=== PATIENT | male | born 1930 | race Caucasian/White ===

== ENCOUNTER 2016-11-18 14:15 | Inpatient (IN) | payer OTHER ==
[~2016-11-18] VITALS: Ht 170.2 cm; Wt 66.6 kg
[~2016-11-18 14:15] MED LIST: ALBUAER19 INH; ALPR-411 PO; AMLO2.5T PO; ASPI81TA28 PO; LISI-461 PO; METO25TA3 PO; PRAV40TA PO; PYRI100T4 PO; [UNRECOGNIZED DRUG - CODE] RE
--- NOTE | 2016-11-18 15:12 | EMERGENCY ROOM VISIT NOTE ---
History Report prepared by Ara: Ubaldo Estrella Under the Supervision of: Dr. David Branch D.O. First contact with patient: 14:41 Chief Complaint: ANXIETY Stated Complaint: SOB/ANXIETY History of Present Illness The patient is an 85 year old male who presents to the Emergency Room with complaints of episodes of chest pain that started 5 days ago. He was referred here by his primary care doctor prior to arrival. Per the patient, he started having left-sided chest pain 5 days ago, and his pulse was very high. Each night , he says that he gets cold and shakes all night long. On the 3rd day of his symptoms, his chest pain moved to his right side. Per the patient's daughter, the patient has also been having episodes of diarrhea, and a bit of a runny nose. Last night, the patient took his 's 2L oxygen because he was having a hard time sleeping. He is not normally on oxygen. He woke up this morning, and was sweating. The patient went to see his physician at [facility], who said that the patient's heart was beating too fast. Per the patient's daughter, the patient was having trouble breathing and had a fever in the office. The patient denies any abdominal pain, cough, or new leg pain. His medical problems include hyperlipidemia and hypertension. He takes nerve medication and has patches for early dementia. He had bladder cancer surgery, and has had chemotherapy. The patient was on antibiotics for a UTI recently. Source of History: patient, family Onset: 5 days ago Position: chest Timing: other Associated Symptoms: + SOB, + chills, + diarrhea, + fevers, No abdominal pain, No cough Note: Associated symptoms: Shaking intermittently, runny nose, high pulse. Denies any new leg pain. Review of Systems See HPI for pertinent positives & negatives. A total of 10 systems reviewed and were otherwise negative. Past Medical & Surgical Medical Problems: (1) Asthma (2) Community acquired pneumonia (3) Hernia (4) Hypertension (5) Kidney disease (6) Pacemaker Family History Cancer Hypertension Lung disease Social History Smoking Status: Former Smoker Alcohol Use: none Drug Use: none Marital Status: Housing Status: lives with significant other Current/Historical Medications Scheduled Albuterol (Ventolin Hfa), 2 PUFFS INH QID Amlodipine (Norvasc), 2.5 MG PO QAM Aspirin (Aspirin Ec), 81 MG PO QAM Lisinopril (Lisinopril), 5 MG PO DAILY Metoprolol Succ (Toprol Xl) (Toprol-Xl), 25 MG PO DAILY Omeprazole (Prilosec), 20 MG PO DAILYBB Pravastatin Sodium (Pravachol), 40 MG PO HS Rivastigmine Tartrate (Exelon), 1 PATCH TD DAILY Scheduled PRN Alprazolam (Alprazolam), 0.25 MG PO TID PRN for NERVOUSNESS Allergies Coded Allergies: Sulfa Antibiotics (Verified Allergy, Intermediate, RASH, 11/18/16) BEE STING (Unverified Allergy, Unknown, swollen, 11/18/16) Adhesives (Verified Adverse Reaction, Intermediate, SKIN IRRITATIONS, BRUISES, 11/18/16) Verapamil (Verified Adverse Reaction, Mild, N/V, 11/18/16) Physical Exam Vital Signs Date Time Temp Pulse Resp B/P Pulse Ox O2 Delivery O2 Flow Rate FiO2 11/18/16 15:52 95 Nasal Cannula 2.0 11/18/16 14:34 38.2 75 20 124/65 97 Nasal Cannula 2.0 11/18/16 14:24 78 Physical Exam GENERAL: Patient is awake, alert, somewhat anxious appearing, but overall comfortable. Does not appear to be in pain. EYES: The conjunctivae are clear. The pupils are round and reactive. EARS, NOSE, MOUTH AND THROAT: The nose is without any evidence of any deformity. Mucous membranes are moist tongue is midline NECK: The neck is nontender and supple. RESPIRATORY: Lung sounds diminished in left lung field. Rhonchi and rales noted in left lung field. CARDIOVASCULAR: Regular rate and rhythm noted there no murmurs rubs or gallops normal S1 normal S2 GASTROINTESTINAL: The abdomen is soft. Bowel sounds are present in all quadrants. Abdomen is nontender MUSCULOSKELETAL/EXTREMITIES: There is no evidence of gross deformity full range of motion is noted in the hips and shoulders SKIN: Trace pedal edema bilaterally. NEUROLOGIC: Patient is awake alert and oriented x3. Medical Decision & Procedures ER Provider Diagnostic Interpretation: X-ray results as stated below per interpretation by me and the radiologist. CHEST ONE VIEW PORTABLE CLINICAL HISTORY: Sepsis COMPARISON STUDY: 06/19/2016 FINDINGS: The heart is at the upper limits of normal in size. There is a left subclavian dual-chamber central venous pacemaker present. There are right upper lobe airspace opacities consistent with a pneumonia. Films subsequent to treatment are recommended in follow-up. There is mild chronic basilar interstitial thickening. There is no overt failure. There are no pleural effusions.[ IMPRESSION: Right upper lobe airspace opacities consistent with pneumonia. Films subsequent to treatment are recommended in follow-up. Electronically signed by: Donaldo Ny M.D. 11/18/2016 3:12 PM Dictated Date/Time: 11/18/2016 3:11 PM Laboratory Results 11/18/16 15:00 Red Blood Count 4.31, Mean Corpuscular Volume 91.4, Mean Corpuscular Hemoglobin 31.8, Mean Corpuscular Hemoglobin Concent 34.8, Mean Platelet Volume 9.6, Neutrophils (%) (Auto) 90.2, Lymphocytes (%) (Auto) 3.2, Monocytes (%) (Auto) 6.0, Eosinophils (%) (Auto) 0.1, Basophils (%) (Auto) 0.1, Neutrophils # (Auto) 14.19, Lymphocytes # (Auto) 0.51, Monocytes # (Auto) 0.95, Eosinophils # (Auto) 0.01, Basophils # (Auto) 0.01 11/18/16 15:00 Test 11/18/16 00:00 11/18/16 15:00 11/18/16 15:15 11/18/16 15:16 Influenza Type A (RT-PCR) Neg for Influ A (NEG) Influenza Type A Antigen Neg for Influ A (NEG) Influenza Type B Antigen Neg for Influ B (NEG) Influenza Type B (RT-PCR) Neg for Influ B (NEG) White Blood Count 15.73 K/uL (4.8-10.8) Red Blood Count 4.31 M/uL (4.7-6.1) Hemoglobin 13.7 g/dL (14.0-18.0) Hematocrit 39.4 % (42-52) Mean Corpuscular Volume 91.4 fL (80-100) Mean Corpuscular Hemoglobin 31.8 pg (25-34) Mean Corpuscular Hemoglobin Concent 34.8 g/dl (32-36) Platelet Count 178 K/uL (130-400) Mean Platelet Volume 9.6 fL (7.4-10.4) Neutrophils (%) (Auto) 90.2 % Lymphocytes (%) (Auto) 3.2 % Monocytes (%) (Auto) 6.0 % Eosinophils (%) (Auto) 0.1 % Basophils (%) (Auto) 0.1 % Neutrophils # (Auto) 14.19 K/uL (1.4-6.5) Lymphocytes # (Auto) 0.51 K/uL (1.2-3.4) Monocytes # (Auto) 0.95 K/uL (0.11-0.59) Eosinophils # (Auto) 0.01 K/uL (0-0.5) Basophils # (Auto) 0.01 K/uL (0-0.2) RDW Standard Deviation 47.8 fL (36.4-46.3) RDW Coefficient of Variation 14.2 % (11.5-14.5) Immature Granulocyte % (Auto) 0.4 % Immature Granulocyte # (Auto) 0.06 K/uL (0.00-0.02) Red Blood Cell Morphology Unremarkable Erythrocyte Sedimentation Rate 53 mm/hr (0-14) Prothrombin Time 12.1 SECONDS (9.0-12.0) Prothromb Time International Ratio 1.1 (0.9-1.1) Activated Partial Thromboplast Time 29.2 SECONDS (21.0-31.0) Partial Thromboplastin Ratio 1.1 Anion Gap 8.0 mmol/L (3-11) Est Creatinine Clear Calc Drug Dose 28.6 ml/min Estimated GFR () 41.1 Estimated GFR (Non- 35.5 BUN/Creatinine Ratio 13.8 (10-20) Calcium Level 8.7 mg/dl (8.5-10.1) Phosphorus Level 1.2 mg/dl (2.5-4.9) Magnesium Level 2.1 mg/dl (1.8-2.4) Total Bilirubin 2.1 mg/dl (0.2-1) Aspartate Amino Transf (AST/SGOT) 25 U/L (15-37) Alanine Aminotransferase (ALT/SGPT) 17 U/L (12-78) Alkaline Phosphatase 58 U/L (45-117) Total Creatine Kinase 126 U/L (39-308) Creatine Kinase MB 1.4 ng/ml (0.5-3.6) Creatine Kinase MB Ratio 1.1 (0-3.0) Troponin I 0.043 ng/ml (0-0.045) C-Reactive Protein 16.20 mg/dl (0-0.29) Pro-B-Type Natriuretic Peptide 1663 pg/ml (0-1800) Total Protein 7.2 gm/dl (6.4-8.2) Albumin 2.8 gm/dl (3.4-5.0) Globulin 4.4 gm/dl (2.5-4.0) Albumin/Globulin Ratio 0.6 (0.9-2) Lipase 80 U/L (73-393) Venous Blood pH 7.49 (7.36-7.41) Venous Blood Partial Pressure CO2 35 mmHg (38.0-50.0) Venous Blood Partial Pressure O2 34 mmHg Venous Blood HCO3 26 meq/L Venous Blood Oxygen Saturation 67.0 % Venous Blood Base Excess 2.9 mmol/L Bedside Lactic Acid Venous 1.61 mmol/L (0.90-1.70) Test 11/18/16 16:40 Urine Color DK YELLOW Urine Appearance CLEAR (CLEAR) Urine pH 8.5 (4.5-7.5) Urine Specific [place] 1.021 (1.000-1.030) Urine Protein 1+ (NEG) Urine Glucose (UA) NEG (NEG) Urine Ketones NEG (NEG) Urine Occult Blood NEG (NEG) Urine Nitrite NEG (NEG) Urine Bilirubin NEG (NEG) Urine Urobilinogen POS (NEG) Urine Leukocyte Esterase MODERATE (NEG) Urine WBC (Auto) >30 /hpf (0-5) Urine RBC (Auto) 5-10 /hpf (0-4) Urine Hyaline Casts (Auto) 1-5 /lpf (0-5) Urine Epithelial Cells (Auto) 0-5 /lpf (0-5) Urine Bacteria (Auto) 1+ (NEG) Laboratory results per my review. Medications Administered Medications (Trade) Dose Ordered Sig/Avelino Route Start Time Stop Time Status Last Admin Dose Admin Levofloxacin 750 mg 750 mg NOW STAT IV 11/18/16 15:32 11/18/16 15:33 DC 11/18/16 15:45 750 MG Sodium Chloride (Nss 500ml) 500 ml @ 999 mls/hr Q31M STAT IV 11/18/16 15:50 11/18/16 16:20 DC 11/18/16 15:50 999 MLS/HR Acetaminophen (Tylenol Children'S Susp) 1,000 mg TODAY@1640 PO 11/18/16 16:40 11/18/16 17:00 DC 11/18/16 17:05 1,000 MG ECG Indication: chest pain Rate (beats per minute): 74 Rhythm: normal sinus Findings: no ectopy, other (no acute ST segment abnormalities) Change: no significant change (from April 03 2016) ED Course 1451: The patient was evaluated in room C12B. A complete history and physical examination were performed. 1532: Ordered Levaquin / D5W 750 mg IV. 1535: I reevaluated the patient and he is resting comfortably. 1550: Ordered NSS 500 ml @ 999 mls/hr IV. 1609: Ordered Tylenol Tab 1000 mg PO. 1712: I discussed the patient with Dr. Azar Barajas security site supervisor - she will evaluate the patient for further treatment. 1716: Upon reevaluation, the patient is resting comfortably. I discussed results and treatment plan with him. He verbalizes agreement and understanding. The patient will be evaluated for further management and care. Medical Decision Differential diagnosis: Etiologies such as infections, reactive airway disease, pneumonia, pneumothorax , COPD, CHF, cardiac ischemia, pulmonary embolism, musculoskeletal, gastrointestinal, as well as others were entertained. Nursing notes reviewed. Additional history is obtained from the patient's family members. The patient is an 85-year-old male who presented to the emergency department for an evaluation of difficulty breathing and cough. The patient noted that he had a fever. He was seen at his primary care physician's office and then sent to the emergency department because of fever and difficulty breathing. The patient was found have signs of pneumonia on chest x-ray. He was treated with IV fluids as well as IV antibiotics. He did not appear septic. The patient was reevaluated multiple times. He was feeling much better on subsequent reevaluation. I discussed the patient's laboratory and radiographic studies with him. Because of his age and comorbidities I discussed his case with the on- call [facility] hospitalist group. They've agreed to evaluate the patient in the emergency department for further management and disposition. Consults Time Called: 1700 Consulting Physician: Dr. Azar Barajas security site supervisor Returned Call: 1712 I discussed the patient with Dr. Azar Barajas security site supervisor - she will evaluate the patient for further treatment. Impression Primary Impression: PNA (pneumonia) Additional Impressions: Fever UTI (urinary tract infection) Scribe Attestation The scribe's documentation has been prepared under my direction and personally reviewed by me in its entirety. I confirm that the note above accurately reflects all work, treatment, procedures, and medical decision making performed by me. Departure Information Dispostion Being Evaluated By Hospitalist Referrals Neena Jimenez M.D. (PCP) Patient Instructions My [facility] Problem Qualifiers Primary Impression: PNA (pneumonia) Pneumonia type: due to unspecified organism Laterality: left Lung location : lower lobe of lung Qualified Codes: J18.1 - Lobar pneumonia, unspecified organism Additional Impressions: Fever Fever type: unspecified Qualified Codes: R50.9 - Fever, unspecified UTI (urinary tract infection) Urinary tract infection type: site unspecified Hematuria presence: without hematuria Qualified Codes: N39.0 - Urinary tract infection, site not specified
[2016-11-18 15:31] LABS: HEMATOCRIT 39.4 % (42-52); MEAN CELL VOLUME 91.4 fL (80-100); MEAN CORPUSCULAR HEMOGLOBIN 31.8 pg (25-34); MEAN CORPUSCULAR HGB CONC 34.8 g/dl (32-36); MEAN PLATELET VOLUME 9.6 fL (7.4-10.4); PLATELET COUNT 178 K/uL (130-400); RED BLOOD COUNT 4.31 M/uL (4.7-6.1); WHITE BLOOD COUNT 15.73 K/uL (4.8-10.8)
[2016-11-18] MEDS ORDERED: LEVAQUIN 750MG / 150ML D5W IV STA (15:32)
[2016-11-18 15:37] LABS: VENOUS BLOOD GAS PCO2 35 mmHg (38.0-50.0); VENOUS BLOOD GAS PO2 34 mmHg
[2016-11-18 15:38] LABS: VEN BLOOD GAS BASE EXCESS 2.9 mmol/L
[2016-11-18 15:40] LABS: INR 1.1 (0.9-1.1); PARTIAL THROMBOPLASTIN RATIO 1.1; PROTHROMBIN TIME (PATIENT) 12.1 SECONDS (9.0-12.0)
[2016-11-18 15:50] LABS: BUN/CREATININE RATIO 13.8 (10-20); C-REACTIVE PROTEIN 16.2 mg/dl (0-0.29); CALCIUM 8.7 mg/dl (8.5-10.1); CREATININE 1.7 mg/dl (0.60-1.40); MAGNESIUM 2.1 mg/dl (1.8-2.4); POTASSIUM 4.3 mmol/L (3.5-5.1)
[2016-11-18] MEDS ORDERED: SODIUM CHLORIDE 0.9% 500ML 500 ML IV STA (15:50)
[2016-11-18 16:01] LABS: ALB/GLOB RATIO 0.6 (0.9-2); CKMB/CK RATIO 1.1 (0-3.0); PHOSPHORUS 1.2 mg/dl (2.5-4.9)
[2016-11-18] MEDS ORDERED: PRVHFAIN INH (16:08)
[2016-11-18] MEDS ORDERED: EXLP46 TD (16:08)
[2016-11-18] MEDS ORDERED: PRLSR20 PO (16:08)
[2016-11-18] MEDS ORDERED: LSN5 PO (16:08)
[2016-11-18] MEDS ORDERED: XNX25 PO (16:08)
[2016-11-18] MEDS ORDERED: TRMCR130WC TOP (16:08)
[2016-11-18] MEDS ORDERED: ACETAMINOPHEN 500 MG TAB PO STA (16:09)
[2016-11-18 16:27] LABS: BASO % 0.1 %; BASO ABS # 0.01 K/uL (0-0.2); COMPLETE YES; EOS % 0.1 %; IG% 0.4 %; LYMPH % 3.2 %; LYMPH ABS # 0.51 K/uL (1.2-3.4); NEUT % 90.2 %
[2016-11-18] MEDS ORDERED: ACETAMINOPHEN SUSP 160 MG/5 ML BTL PO SCH (16:40)
[2016-11-18 17:19] LABS: URINE APPEARANCE CLEAR (CLEAR); URINE BILIRUBIN NEG (NEG); URINE COLOR DK YELLOW; URINE EPITHELIAL CELL AUTO 0-5 /lpf (0-5); URINE NITRITE NEG (NEG); URINE PH 8.5 (4.5-7.5); URINE SPECIFIC GRAVITY 1.021 (1.000-1.030); UROBILINOGEN POS (NEG); ZZUR CULT IF INDIC CLEAN CATCH YES
[2016-11-18 17:33] LABS: MANUAL MICROSCOPIC REQUIRED? NO; REVIEW REQ? NO; SULFASALICYLIC ACID POS (NEG)
[2016-11-18 18:13] LABS: INFLUENZA A PCR Neg for Influ A (NEG); INFLUENZA B PCR Neg for Influ B (NEG)
[2016-11-18] MEDS ORDERED: ASPEC81 PO (18:21)
[2016-11-18] MEDS ORDERED: ONDANSETRON INJ 2 MG/ML 2 ML VIAL IV PRN (18:45)
[2016-11-18] MEDS ORDERED: POLYETHYLENE (MIRALAX) 17 GM PACK PO PRN (18:45)
[2016-11-18] MEDS ORDERED: ALPRAZOLAM 0.25 MG TAB PO PRN (19:00)
[2016-11-18] MEDS ORDERED: POTASSIUM PHOS 3 MMOL/1 ML INFUSION IV STA (19:06)
--- NOTE | 2016-11-18 19:28 | History and Physical ---
History & Physical Date & Time of Service: Nov 18, 2016 at 18:43 Chief Complaint: Sob/Anxiety Primary Care Physician: Neena Jimenez M.D. History of Present Illness Source: patient 85 yoM who presents with worsening of shortness of breath, chest pain rigors and increased oxygen need over the past 5 days. The patient lives with his at home who wears oxygen and he states that he borrowed her oxygen two nights ago and felt much better. He denies cough, fevers at home, sick contacts or recent travel history except for recent travel to [place]. He took his to the doctor's office today who was attached to his PCP office, and asked to see his PCP urgently. He was found to have a fever of 102.3 and a pulse of 103. He was ill-appearing and tachypneic and was sent via ambulance to the ER. A CXR revealed pneumonia in the RUL and labwork revealed a WBC count of 15K and possible UTI. Phos was also very low at 1.2. He still febrile but was hemodynamically stable and not requiring oxygen. He was given Levaquin 750mg, APAP and NS 500cc. On further investigation of ROS he reports chest pain chronically which is an achy pain not made better or worse by anything in particular and not associated with SOB, sweating, palpitations, etc "it's just there. He is very anxious and constantly moving and going taking care of his and daughter at home. He reports that he rarely sleeps. In the last 5 days he has had rigors and cold intolerance. He appears very stressed and overwhelmed. He reports chronic whole body pain that is there all the time and states that he doesn't want anything for pain because it will get stuck in his throat. He has a known Zenker's diverticulum. If the pain medication can be made into a liquid, he states that he would be amenable. He has recently had a cystoscopy in Aug by Dr. Stovall post-biopsy for bladder cancer which revealed no active cancer present but there was a healing white patch that will be re-evaluated in 3 months. He underwent TURBT surgery and was give intravesicular mitomycin for which he developed a chemical cystitis. He states that he has dysuria every time he urinates, and has urgency as well, so he can't tell if he has a UTI. Past Medical/Surgical History Medical Problems: (1) Bladder cancer Status: Chronic (2) Community acquired pneumonia Status: Chronic (3) COPD (chronic obstructive pulmonary disease) Status: Chronic (4) Hernia Status: Resolved (5) Hypertension Status: Chronic (6) Kidney disease Status: Chronic (7) Pacemaker Status: Chronic Family History Cancer Hypertension Lung disease Social History Smoking Status: Former Smoker (quit 30 yrs ago) Alcohol Use: none Drug Use: none Marital Status: Housing status: lives with family, lives with significant other Occupational Status: retired Immunizations History of Influenza Vaccine: Yes Influenza Vaccine Date: May 09, 2016 History of Tetanus Vaccine?: Yes (1999) Tetanus Immunization Date: Nov 09, 2001 History of Pneumococcal: Yes (1994) Pneumococcal Date: Apr 04, 2016 History of Hepatitis B Vaccine: No Multi-Drug Resistant Organisms History of MDRO: No Allergies Coded Allergies: Sulfa Antibiotics (Verified Allergy, Intermediate, RASH, 11/18/16) BEE STING (Unverified Allergy, Unknown, swollen, 11/18/16) Adhesives (Verified Adverse Reaction, Intermediate, SKIN IRRITATIONS, BRUISES, 11/18/16) Verapamil (Verified Adverse Reaction, Mild, N/V, 11/18/16) Home Medications Scheduled Albuterol (Ventolin Hfa), 2 PUFFS INH QID Amlodipine (Norvasc), 2.5 MG PO QAM Aspirin (Aspirin Ec), 81 MG PO QAM Lisinopril (Lisinopril), 5 MG PO DAILY Metoprolol Succ (Toprol Xl) (Toprol-Xl), 25 MG PO DAILY Omeprazole (Prilosec), 20 MG PO DAILYBB Pravastatin Sodium (Pravachol), 40 MG PO HS Rivastigmine Tartrate (Exelon), 1 PATCH TD DAILY Scheduled PRN Alprazolam (Alprazolam), 0.25 MG PO TID PRN for NERVOUSNESS Review of Systems Constitutional: + chills, + fever, + sweats Eyes: + problem reported ENT: + nasal symptoms, + trouble swallowing (chronic -known Zenker's diverticulum), No sore throat Respiratory: + shortness of breath, No cough, No wheezing Cardiovascular: + chest pain Abdomen: No nausea, No pain, No vomiting Musculoskeletal: + joint pain (generalized), + muscle pain (generalized) Genitourinary - Male: + dysuria, + urinary urgency Neurologic: + memory loss (on exelon patch) Psychiatric: + anxiety, + insomnia Endocrine: + fatigue, + problem reported (cold intolerance/rigors) Integumentary: No new/changing skin lesions Allergic / Immunologic: No food allergies Physical Exam Vital Signs Date Time Temp Pulse Resp B/P Pulse Ox O2 Delivery O2 Flow Rate FiO2 11/18/16 15:52 95 Nasal Cannula 2.0 11/18/16 14:34 38.2 75 20 124/65 97 Nasal Cannula 2.0 11/18/16 14:24 78 GEN: WNWD, mild conversational dyspnea but able to communicate in full sentences off oxygen, alert and appropriate, appears very anxious HEENT: NC/AT, PERRL, normal sclerae, pharynx non-acute, no cervical, submandibular or supraclavicular LAD CARDIO: reg rate, S1/2 heard without m/g/r LUNGS: CTA bilaterally, no crackles, rales or wheezes, good diaphragmatic excursion ABD: soft, TTP in bilateral lower quadrants, non-distended, +BS EXTREMITY: RP and DP palpable 2+ bilat, no LE swelling or edema, extremities are warm and well-perfused NEURO: CN 2-12 grossly intact, sensation intact throughout, no gross focal deficits MUSC: 5/5 strength throughout, no focal deficits SKIN: warm and dry Diagnostics Laboratory Results Results Past 24 Hours Test 11/18/16 00:00 11/18/16 15:00 11/18/16 15:15 11/18/16 15:16 Range/Units Influenza Type A (RT-PCR) Neg for Influ A NEG Influenza Type A Antigen Neg for Influ A NEG Influenza Type B Antigen Neg for Influ B NEG Influenza Type B (RT-PCR) Neg for Influ B NEG White Blood Count 15.73 4.8-10.8 K/uL Red Blood Count 4.31 4.7-6.1 M/uL Hemoglobin 13.7 14.0-18.0 g/dL Hematocrit 39.4 42-52 % Mean Corpuscular Volume 91.4 80-100 fL Mean Corpuscular Hemoglobin 31.8 25-34 pg Mean Corpuscular Hemoglobin Concent 34.8 32-36 g/dl Platelet Count 178 130-400 K/uL Mean Platelet Volume 9.6 7.4-10.4 fL Neutrophils (%) (Auto) 90.2 % Lymphocytes (%) (Auto) 3.2 % Monocytes (%) (Auto) 6.0 % Eosinophils (%) (Auto) 0.1 % Basophils (%) (Auto) 0.1 % Neutrophils # (Auto) 14.19 1.4-6.5 K/uL Lymphocytes # (Auto) 0.51 1.2-3.4 K/uL Monocytes # (Auto) 0.95 0.11-0.59 K/uL Eosinophils # (Auto) 0.01 0-0.5 K/uL Basophils # (Auto) 0.01 0-0.2 K/uL RDW Standard Deviation 47.8 36.4-46.3 fL RDW Coefficient of Variation 14.2 11.5-14.5 % Immature Granulocyte % (Auto) 0.4 % Immature Granulocyte # (Auto) 0.06 0.00-0.02 K/uL Red Blood Cell Morphology Unremarkable Erythrocyte Sedimentation Rate 53 0-14 mm/hr Prothrombin Time 12.1 9.0-12.0 SECONDS Prothromb Time International Ratio 1.1 0.9-1.1 Activated Partial Thromboplast Time 29.2 21.0-31.0 SECONDS Partial Thromboplastin Ratio 1.1 Sodium Level 137 136-145 mmol/L Potassium Level 4.3 3.5-5.1 mmol/L Chloride Level 102 98-107 mmol/L Carbon Dioxide Level 27 21-32 mmol/L Anion Gap 8.0 3-11 mmol/L Blood Urea Nitrogen 24 7-18 mg/dl Creatinine 1.70 0.60-1.40 mg/dl Est Creatinine Clear Calc Drug Dose 28.6 ml/min Estimated GFR () 41.1 Estimated GFR (Non- 35.5 BUN/Creatinine Ratio 13.8 10-20 Random Glucose 117 70-99 mg/dl Calcium Level 8.7 8.5-10.1 mg/dl Phosphorus Level 1.2 2.5-4.9 mg/dl Magnesium Level 2.1 1.8-2.4 mg/dl Total Bilirubin 2.1 0.2-1 mg/dl Aspartate Amino Transf (AST/SGOT) 25 15-37 U/L Alanine Aminotransferase (ALT/SGPT) 17 12-78 U/L Alkaline Phosphatase 58 45-117 U/L Total Creatine Kinase 126 39-308 U/L Creatine Kinase MB 1.4 0.5-3.6 ng/ml Creatine Kinase MB Ratio 1.1 0-3.0 Troponin I 0.043 0-0.045 ng/ml C-Reactive Protein 16.20 0-0.29 mg/dl Pro-B-Type Natriuretic Peptide 1663 0-1800 pg/ml Total Protein 7.2 6.4-8.2 gm/dl Albumin 2.8 3.4-5.0 gm/dl Globulin 4.4 2.5-4.0 gm/dl Albumin/Globulin Ratio 0.6 0.9-2 Lipase 80 73-393 U/L Venous Blood pH 7.49 7.36-7.41 Venous Blood Partial Pressure CO2 35 38.0-50.0 mmHg Venous Blood Partial Pressure O2 34 mmHg Venous Blood HCO3 26 meq/L Venous Blood Oxygen Saturation 67.0 % Venous Blood Base Excess 2.9 mmol/L Bedside Lactic Acid Venous 1.61 0.90-1.70 mmol/L Test 11/18/16 16:40 Range/Units Urine Color DK YELLOW Urine Appearance CLEAR CLEAR Urine pH 8.5 4.5-7.5 Urine Specific [place] 1.021 1.000-1.030 Urine Protein 1+ NEG Urine Glucose (UA) NEG NEG Urine Ketones NEG NEG Urine Occult Blood NEG NEG Urine Nitrite NEG NEG Urine Bilirubin NEG NEG Urine Urobilinogen POS NEG Urine Leukocyte Esterase MODERATE NEG Urine WBC (Auto) >30 0-5 /hpf Urine RBC (Auto) 5-10 0-4 /hpf Urine Hyaline Casts (Auto) 1-5 0-5 /lpf Urine Epithelial Cells (Auto) 0-5 0-5 /lpf Urine Bacteria (Auto) 1+ NEG Microbiology Results 11/18/16 Blood Culture, Received Pending 11/18/16 Blood Culture, Received Pending 11/18/16 Urine Culture, Received Pending Diagnostic Radiology CXR port: IMPRESSION: Right upper lobe airspace opacities consistent with pneumonia. Films subsequent to treatment are recommended in follow-up. EKG SR 74, no ST changes, Q waves or other evidence of ischemia Impression Assessment and Plan 85 yo M with SOB and chest pain 2/2 CAP 1. CAP-patient does not appear septic at this time. He has normal vitals and was febrile on admission. He had a normal lactate level and is not tachypneic on room air. He was given Levaquin in the ER along with 500cc IVF and some Tylenol. All symptoms are consistent with pneumonia, and patient is telling me that most of his symptoms are long-term like the chest pain and pain all over. Place on telemetry overnight. I do not believe he has ACS with normal enzymes after 5 days of chest pain and a normal EKG. Oxygen to use as needed in setting of acute illness. will cont Levaquin at renal dosing for the next 5-7 days. Duonebs ordered for comfort. He has a h/o COPD but is not actively wheezing and I do not believe this is a COPD exacerbation. Blood and Urine cultures are pending. Flu Ag negative with PCR pending. Sputum culture ordered. 2. Chronic pain -including chest pain, ACS not present, feel this is 2/2 pneumonia as above. Cont supportive care with Tylenol/Tramadol PRN 3. Hypophophatemia-replace IV and recheck in am 4. Leukocytosis-likely 2/2 CAP however UTI symptoms are chronically present, there has been urethral manipulation with a cysto in Aug, UA appears dirty and there is some suprapbic tenderness. Levaquin to cover UTI while UCx is pending. 5. COPD-stable, but will give Duonebs for PNA. Do not believe this is an exacerbation with no wheezing or cough or sputum changes 6. HTN-controlled, cont home meds 7. CKD III-at baseline, renally dose meds, avoid nephrotoxic substances 8. Tachybrady syndrom s/p PM 9. Anxiety-significant, takes Xanax at home, cont this as inpatient 10. 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 Rule out UTI as above the defer to Urology as outpatient DVT prophy: heparin Full code Dispo-likely to home in 1-2 days, PT/OT ordered DO Karl You Hospitalist Level of Care Telemetry Resuscitation Status FULL RESUSCITATION VTE Prophylaxis VTE Risk Assessment Done? Y/N: Yes Risk Level: Moderate Given or contraindicated: Unfractionated heparin SQ, SCD's Social Service Consult >80 yr.& Lives Alone, Cancer Patient Under [place]
[2016-11-18] MEDS ORDERED: POTASSIUM PHOSPHATE INJ 30 MMOL in SODIUM CHLORIDE 0.9% 500ML 500 ML IV STA (19:52)
[2016-11-18] MEDS ORDERED: LEVOFLOXACIN CONSULT ACTIVE PRN (20:00)
[2016-11-18] MEDS: PRAVASTATIN SOD 40 MG TAB PO SCH (21:00)
[2016-11-18 22:27] VITALS: BP 117/66; PULSE 78; TEMP 36.7; O2SAT 94; Ht 170.2 cm; Wt 66.6 kg
[2016-11-18 23:52] VITALS: BP 145/74; PULSE 83; TEMP 36.5; O2SAT 97
[2016-11-19] VITALS (13 sets, daily range): BP systolic 110–150; BP diastolic 53–84; PULSE 72–102; TEMP 36.3–37.6; O2SAT 88–98
[2016-11-19] MEDS ORDERED: ACETAMINOPHEN 325 MG TAB ONE (04:13)
[2016-11-19] MEDS ORDERED: NURSING VERBAL MED ORDER ONE ×2 (04:15→09:15)
[2016-11-19] MEDS ORDERED: ACETAMINOPHEN 325 MG TAB PO STA (04:19)
[2016-11-19] MEDS: HEPARIN SOD 5000 UNIT/0.5 ML CARP SQ SCH ×3 (06:39→21:45)
[2016-11-19] MEDS: LISINOPRIL 5 MG TAB PO SCH (08:09)
[2016-11-19] MEDS: AMLODIPINE BESYLATE 5 MG TAB PO SCH (08:10)
[2016-11-19] MEDS: ALBUT/IPRATROP 3MG/0.5MG NEB 3 ML VIAL INH SCH ×4 (08:23→20:20)
[2016-11-19] MEDS ORDERED: METOPROLOL SUCC 25MG EXT REL TAB PO SCH (09:00)
[2016-11-19] MEDS ORDERED: ASPIRIN 81 MG ECTAB PO SCH (09:00)
[2016-11-19] MEDS: METOPROLOL TARTRATE 25 MG TAB PO SCH ×2 (09:46→20:38)
[2016-11-19] MEDS: ASPIRIN 81 MG CHEW PO SCH (09:46)
[2016-11-19] MEDS ORDERED: TRAMADOL HCL 50 MG TAB PO PRN (10:00)
[2016-11-19 10:12] LABS: BASO % 0.1 %; BASO ABS # 0.01 K/uL (0-0.2); COMPLETE YES; EOS % 0.1 %; HEMATOCRIT 36.8 % (42-52); IG% 0.2 %; LYMPH % 2.9 %; LYMPH ABS # 0.37 K/uL (1.2-3.4); MEAN CELL VOLUME 90.6 fL (80-100); MEAN CORPUSCULAR HEMOGLOBIN 31.5 pg (25-34); MEAN CORPUSCULAR HGB CONC 34.8 g/dl (32-36); MEAN PLATELET VOLUME 9.2 fL (7.4-10.4); MONO % 7.2 %; NEUT % 89.5 %; PLATELET COUNT 169 K/uL (130-400); RED BLOOD COUNT 4.06 M/uL (4.7-6.1); WHITE BLOOD COUNT 12.62 K/uL (4.8-10.8)
[2016-11-19] MEDS: PANTOprazole INJ 40 MG in SYRINGE 0 ML IV SCH (10:37)
[2016-11-19] MEDS: ACETAMINOPHEN SOLN 650MG/20.3 ML UDC PO PRN (10:38)
[2016-11-19 10:55] LABS: BUN/CREATININE RATIO 15.2 (10-20); CALCIUM 8.1 mg/dl (8.5-10.1); CREATININE 1.4 mg/dl (0.60-1.40); MAGNESIUM 2.1 mg/dl (1.8-2.4); POTASSIUM 4.1 mmol/L (3.5-5.1)
[2016-11-19 10:57] LABS: PHOSPHORUS 1.8 mg/dl (2.5-4.9)
[2016-11-19] MEDS ORDERED: ALPRAZOLAM 0.25 MG TAB PO ONE (16:35)
--- NOTE | 2016-11-19 18:00 | Progress Note ---
Medicine Progress Note Date & Time of Visit: Nov 19, 2016 at 16:13. Subjective 85 yo M with SOB and chest pain 2/2 CAP -breathing somewhat improved -no fevers, chills, cough overnight -had pain overnight all over body which was improved with Tylenol -tolerating PO -ambulating with assistance Objective Last 8 Hrs Date Time Temp Pulse Resp B/P Pulse Ox O2 Delivery O2 Flow Rate FiO2 11/19/16 15:30 72 16 88 Room Air 2.0 11/19/16 15:07 36.3 76 18 110/69 95 Room Air 11/19/16 12:48 97 Nasal Cannula 1.0 11/19/16 12:00 Nasal Cannula 1.0 11/19/16 11:40 36.6 74 20 110/64 93 11/19/16 11:36 78 16 98 Nasal Cannula 2.0 11/19/16 09:43 95 132/84 Physical Exam: GEN: WNWD, appears anxious, alert and appropriate HEENT: NC/AT, normal sclerae CARDIO: reg rate, S1/2 heard without m/g/r LUNGS: CTA bilaterally, no crackles, rales or wheezes, good diaphragmatic excursion, diminished breath sounds in upper lung warren. ABD: soft, non-tender, non-distended, no rebound or guarding EXTREMITY: no LE swelling or edema, extremities are warm and well-perfused NEURO: no gross focal deficits MUSC: moving all extremities equally SKIN: warm and dry Laboratory Results: 11/19/16 10:03 Red Blood Count 4.06, Mean Corpuscular Volume 90.6, Mean Corpuscular Hemoglobin 31.5, Mean Corpuscular Hemoglobin Concent 34.8, Mean Platelet Volume 9.2, Neutrophils (%) (Auto) 89.5, Lymphocytes (%) (Auto) 2.9, Monocytes (%) (Auto) 7.2, Eosinophils (%) (Auto) 0.1, Basophils (%) (Auto) 0.1, Neutrophils # (Auto) 11.29, Lymphocytes # (Auto) 0.37, Monocytes # (Auto) 0.91, Eosinophils # (Auto) 0.01, Basophils # (Auto) 0.01 11/19/16 10:03 Test 11/18/16 00:00 11/18/16 15:00 11/18/16 15:15 11/18/16 15:16 Influenza Type A (RT-PCR) Neg for Influ A (NEG) Influenza Type A Antigen Neg for Influ A (NEG) Influenza Type B Antigen Neg for Influ B (NEG) Influenza Type B (RT-PCR) Neg for Influ B (NEG) Red Blood Cell Morphology Unremarkable Erythrocyte Sedimentation Rate 53 mm/hr (0-14) Prothrombin Time 12.1 SECONDS (9.0-12.0) Prothromb Time International Ratio 1.1 (0.9-1.1) Activated Partial Thromboplast Time 29.2 SECONDS (21.0-31.0) Partial Thromboplastin Ratio 1.1 Total Bilirubin 2.1 mg/dl (0.2-1) Aspartate Amino Transf (AST/SGOT) 25 U/L (15-37) Alanine Aminotransferase (ALT/SGPT) 17 U/L (12-78) Alkaline Phosphatase 58 U/L (45-117) Total Creatine Kinase 126 U/L (39-308) Creatine Kinase MB 1.4 ng/ml (0.5-3.6) Creatine Kinase MB Ratio 1.1 (0-3.0) Troponin I 0.043 ng/ml (0-0.045) C-Reactive Protein 16.20 mg/dl (0-0.29) Pro-B-Type Natriuretic Peptide 1663 pg/ml (0-1800) Total Protein 7.2 gm/dl (6.4-8.2) Albumin 2.8 gm/dl (3.4-5.0) Globulin 4.4 gm/dl (2.5-4.0) Albumin/Globulin Ratio 0.6 (0.9-2) Lipase 80 U/L (73-393) Venous Blood pH 7.49 (7.36-7.41) Venous Blood Partial Pressure CO2 35 mmHg (38.0-50.0) Venous Blood Partial Pressure O2 34 mmHg Venous Blood HCO3 26 meq/L Venous Blood Oxygen Saturation 67.0 % Venous Blood Base Excess 2.9 mmol/L Bedside Lactic Acid Venous 1.61 mmol/L (0.90-1.70) Test 11/18/16 16:40 11/19/16 10:03 Urine Color DK YELLOW Urine Appearance CLEAR (CLEAR) Urine pH 8.5 (4.5-7.5) Urine Specific [place] 1.021 (1.000-1.030) Urine Protein 1+ (NEG) Urine Glucose (UA) NEG (NEG) Urine Ketones NEG (NEG) Urine Occult Blood NEG (NEG) Urine Nitrite NEG (NEG) Urine Bilirubin NEG (NEG) Urine Urobilinogen POS (NEG) Urine Leukocyte Esterase MODERATE (NEG) Urine WBC (Auto) >30 /hpf (0-5) Urine RBC (Auto) 5-10 /hpf (0-4) Urine Hyaline Casts (Auto) 1-5 /lpf (0-5) Urine Epithelial Cells (Auto) 0-5 /lpf (0-5) Urine Bacteria (Auto) 1+ (NEG) White Blood Count 12.62 K/uL (4.8-10.8) Red Blood Count 4.06 M/uL (4.7-6.1) Hemoglobin 12.8 g/dL (14.0-18.0) Hematocrit 36.8 % (42-52) Mean Corpuscular Volume 90.6 fL (80-100) Mean Corpuscular Hemoglobin 31.5 pg (25-34) Mean Corpuscular Hemoglobin Concent 34.8 g/dl (32-36) Platelet Count 169 K/uL (130-400) Mean Platelet Volume 9.2 fL (7.4-10.4) Neutrophils (%) (Auto) 89.5 % Lymphocytes (%) (Auto) 2.9 % Monocytes (%) (Auto) 7.2 % Eosinophils (%) (Auto) 0.1 % Basophils (%) (Auto) 0.1 % Neutrophils # (Auto) 11.29 K/uL (1.4-6.5) Lymphocytes # (Auto) 0.37 K/uL (1.2-3.4) Monocytes # (Auto) 0.91 K/uL (0.11-0.59) Eosinophils # (Auto) 0.01 K/uL (0-0.5) Basophils # (Auto) 0.01 K/uL (0-0.2) RDW Standard Deviation 46.6 fL (36.4-46.3) RDW Coefficient of Variation 14.2 % (11.5-14.5) Immature Granulocyte % (Auto) 0.2 % Immature Granulocyte # (Auto) 0.03 K/uL (0.00-0.02) Anion Gap 6.0 mmol/L (3-11) Est Creatinine Clear Calc Drug Dose 34.8 ml/min Estimated GFR () 52.0 Estimated GFR (Non- 44.9 BUN/Creatinine Ratio 15.2 (10-20) Calcium Level 8.1 mg/dl (8.5-10.1) Phosphorus Level 1.8 mg/dl (2.5-4.9) Magnesium Level 2.1 mg/dl (1.8-2.4) Date/Time Source Procedure Growth Status 11/18/16 15:10 Blood Blood Culture Pending Received 11/18/16 16:40 Urine , Clean Catch Urine Culture - Preliminary Streptococcus Species Resulted Last 24 Hours Test 11/18/16 16:40 11/19/16 10:03 Urine Color DK YELLOW Urine Appearance CLEAR Urine pH 8.5 Urine Specific [place] 1.021 Urine Protein 1+ Urine Glucose (UA) NEG Urine Ketones NEG Urine Occult Blood NEG Urine Nitrite NEG Urine Bilirubin NEG Urine Urobilinogen POS Urine Leukocyte Esterase MODERATE Urine WBC (Auto) >30 /hpf Urine RBC (Auto) 5-10 /hpf Urine Hyaline Casts (Auto) 1-5 /lpf Urine Epithelial Cells (Auto) 0-5 /lpf Urine Bacteria (Auto) 1+ White Blood Count 12.62 K/uL Red Blood Count 4.06 M/uL Hemoglobin 12.8 g/dL Hematocrit 36.8 % Mean Corpuscular Volume 90.6 fL Mean Corpuscular Hemoglobin 31.5 pg Mean Corpuscular Hemoglobin Concent 34.8 g/dl Platelet Count 169 K/uL Mean Platelet Volume 9.2 fL Neutrophils (%) (Auto) 89.5 % Lymphocytes (%) (Auto) 2.9 % Monocytes (%) (Auto) 7.2 % Eosinophils (%) (Auto) 0.1 % Basophils (%) (Auto) 0.1 % Neutrophils # (Auto) 11.29 K/uL Lymphocytes # (Auto) 0.37 K/uL Monocytes # (Auto) 0.91 K/uL Eosinophils # (Auto) 0.01 K/uL Basophils # (Auto) 0.01 K/uL RDW Standard Deviation 46.6 fL RDW Coefficient of Variation 14.2 % Immature Granulocyte % (Auto) 0.2 % Immature Granulocyte # (Auto) 0.03 K/uL Sodium Level 137 mmol/L Potassium Level 4.1 mmol/L Chloride Level 103 mmol/L Carbon Dioxide Level 28 mmol/L Anion Gap 6.0 mmol/L Blood Urea Nitrogen 21 mg/dl Creatinine 1.40 mg/dl Est Creatinine Clear Calc Drug Dose 34.8 ml/min Estimated GFR () 52.0 Estimated GFR (Non- 44.9 BUN/Creatinine Ratio 15.2 Random Glucose 195 mg/dl Calcium Level 8.1 mg/dl Phosphorus Level 1.8 mg/dl Magnesium Level 2.1 mg/dl Date/Time Source Procedure Growth Status 11/18/16 16:40 Urine , Clean Catch Urine Culture - Preliminary Streptococcus Species Resulted Assessment & Plan 85 yo M with SOB and chest pain 2/2 CAP 1. CAP-improved somewhat overnight, afebrile, no coughing, no rigors or chills reported but still requiring oxygen. Cont Levaquin at renal dosing for the next 5-7 days. Duonebs ordered for comfort. He has a h/o COPD but is not actively wheezing and I do not believe this is a COPD exacerbation. Blood and Urine cultures are pending. Flu PCR negative Sputum culture ordered. 2. FGP-[id number] pending. Still has many urination issues. Will plan to clear infection and have him follow with Urology as an outpatient if symptoms do not improve. 3. Chronic pain -including chest pain, ACS not present, feel this is 2/2 pneumonia as above. Cont supportive care with Tylenol/Tramadol PRN as this is working 4. Hypophosphatemia-repleted 5. Leukocytosis-improved 6. COPD-stable, but will give Duonebs for PNA. Do not believe this is an exacerbation with no wheezing or cough or sputum changes 7. HTN-controlled, cont home meds 8. CKD III-at baseline, renally dose meds, avoid nephrotoxic substances 9. Tachybrady syndrome s/p PM 10. Anxiety-significant, takes Xanax at home, cont this as inpatient 11. 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 Rule out UTI as above the defer to Urology as outpatient DVT prophy: heparin Full code Dispo-likely to home in 1-2 days, PT/OT ordered. Discussed treatment plan with his daughter, who is at bedside. Emily Askew DO [facility] Hospitalist Current Inpatient Medications: Current Inpatient Medications Medications (Trade) Dose Ordered Sig/Avelino Route Start Time Stop Time Status Last Admin Dose Admin Heparin Sodium (Porcine) (Heparin Sq 5000 Unit/0.5ml) 5,000 unit Q8H SQ 11/18/16 22:00 12/18/16 21:59 11/19/16 14:31 5,000 UNIT Polyethylene (Miralax Powder Packet) 17 gm DAILY PRN PO 11/18/16 18:45 12/18/16 18:44 Ondansetron HCl (Zofran Inj) 4 mg Q6H PRN IV 11/18/16 18:45 12/18/16 18:44 Alprazolam (Xanax Tab) 0.25 mg TID PRN PO 11/18/16 19:00 12/18/16 18:59 11/19/16 01:31 0.25 MG Amlodipine Besylate (Norvasc Tab) 2.5 mg QAM PO 11/19/16 09:00 12/19/16 08:59 11/19/16 08:10 2.5 MG Lisinopril (Zestril Tab) 5 mg DAILY PO 11/19/16 09:00 12/19/16 08:59 11/19/16 08:09 5 MG Pravastatin Sodium (Pravachol Tab) 40 mg HS PO 11/18/16 21:00 12/18/16 20:59 Miscellaneous Information (Order Awaiting Action) 1 ea QS N/A 11/19/16 00:00 12/19/16 00:00 Albuterol/ Ipratropium 3 ml 3 ml QIDR INH 11/18/16 20:00 12/18/16 19:59 11/19/16 15:30 3 ML Pantoprazole Sodium 40 mg/ Syringe 10 ml @ 5 mls/min DAILY@11 IV 11/19/16 11:00 12/19/16 10:59 11/19/16 10:37 5 MLS/MIN Levofloxacin/Prmx (Levaquin / D5W/ Premixed D5W) 150 ml @ 100 mls/hr Q48H IV 11/20/16 11:00 11/25/16 10:59 Levofloxacin (Consult) 1 ea UD PRN N/A 11/18/16 20:00 12/18/16 19:59 Aspirin (Aspirin Chew) 81 mg QAM PO 11/19/16 09:00 12/19/16 08:59 11/19/16 09:46 81 MG Metoprolol Tartrate (Lopressor Tab) 12.5 mg BID PO 11/19/16 09:00 12/19/16 08:59 11/19/16 09:46 12.5 MG Acetaminophen (Tylenol Soln) 650 mg Q4H PRN PO 11/19/16 10:00 12/19/16 09:59 11/19/16 10:38 650 MG Tramadol HCl (Ultram Tab) 50 mg Q6H PRN PO 11/19/16 10:00 12/19/16 09:59
[2016-11-19] MEDS: PRAVASTATIN SOD 40 MG TAB PO SCH (20:37)
[2016-11-19] MEDS ORDERED: ALPRAZOLAM 0.5 MG TAB PO SCH (21:00)
[2016-11-20] VITALS (12 sets, daily range): BP systolic 102–138; BP diastolic 54–78; PULSE 64–87; TEMP 36.4–37.6; O2SAT 91–96
[2016-11-20] MEDS: HEPARIN SOD 5000 UNIT/0.5 ML CARP SQ SCH ×3 (05:10→21:20)
[2016-11-20] MEDS: ACETAMINOPHEN SOLN 650MG/20.3 ML UDC PO PRN ×2 (05:55→22:10)
[2016-11-20 05:58] LABS: HEMATOCRIT 34.8 % (42-52); MEAN CELL VOLUME 88.8 fL (80-100); MEAN CORPUSCULAR HEMOGLOBIN 30.6 pg (25-34); MEAN CORPUSCULAR HGB CONC 34.5 g/dl (32-36); MEAN PLATELET VOLUME 8.9 fL (7.4-10.4); PLATELET COUNT 178 K/uL (130-400); RED BLOOD COUNT 3.92 M/uL (4.7-6.1); WHITE BLOOD COUNT 10.11 K/uL (4.8-10.8)
[2016-11-20 06:37] LABS: BUN/CREATININE RATIO 13.6 (10-20); CALCIUM 8.5 mg/dl (8.5-10.1); CREATININE 1.4 mg/dl (0.60-1.40); POTASSIUM 3.8 mmol/L (3.5-5.1)
[2016-11-20] MEDS: ALBUT/IPRATROP 3MG/0.5MG NEB 3 ML VIAL INH SCH ×2 (07:30→12:00)
[2016-11-20] MEDS: LISINOPRIL 5 MG TAB PO SCH (08:39)
[2016-11-20] MEDS: AMLODIPINE BESYLATE 5 MG TAB PO SCH (08:40)
[2016-11-20] MEDS: METOPROLOL TARTRATE 25 MG TAB PO SCH ×2 (08:40→21:16)
[2016-11-20] MEDS: ASPIRIN 81 MG CHEW PO SCH (08:41)
[2016-11-20] MEDS: ALPRAZOLAM 0.25 MG TAB PO SCH (08:44)
[2016-11-20] MEDS ORDERED: LEVOFLOXACIN / D5W 750 MG in PREMIXED IN D5W 150 ML IV SCH (11:00)
[2016-11-20] MEDS ORDERED: ALBUT/IPRATROP 3MG/0.5MG NEB 3 ML VIAL INH PRN (12:15)
[2016-11-20] MEDS: PANTOprazole INJ 40 MG in SYRINGE 0 ML IV SCH (12:15)
[2016-11-20] MEDS: IPRATROPIUM BROMIDE/ALBUTEROL respimat INH INH SCH ×3 (12:16→21:15)
--- NOTE | 2016-11-20 16:20 | Pharmacy Progress Note ---
Automatic IV to PO Conversion Date of Service: Nov 20, 2016. [facility] has identified patient as an appropriate candidate for automatic intravenous to oral conversion. Eligible medication: Levaquin IV every 48 hours. Day # 3 of IV therapy. Subjective The patient is a 85 year old male admitted on Nov 18, 2016 at 19:09 for Community Acquired Pneumonia. Objective Vital Signs: Vital Signs Past 12 Hours Date Time Temp Pulse Resp B/P Pulse Ox O2 Delivery O2 Flow Rate FiO2 11/20/16 15:40 36.8 73 22 115/66 94 Room Air 11/20/16 12:09 70 12 95 Nasal Cannula 2.0 11/20/16 12:00 95 Nasal Cannula 2.0 11/20/16 11:33 73 95 11/20/16 11:03 36.4 64 20 102/54 96 11/20/16 08:00 94 Nasal Cannula 2.0 11/20/16 07:56 36.6 84 20 134/67 94 Nasal Cannula 2.0 11/20/16 07:30 71 16 96 Nasal Cannula 2.0 11/20/16 05:08 37.3 11/20/16 04:38 37.6 75 20 122/65 96 Nasal Cannula 2.0 White Blood Count: Test 11/20/16 05:44 White Blood Count 10.11 K/uL (4.8-10.8) Height (Feet): 5 Height (Inches): 7.00 Weight (Kilograms): 66.600 Type of Diet: AHA Phase I Assessment & Plan The Infectious Disease Society and the [place] [employer] recommend conversion to oral therapy once a patient is determined to be clinically stable and are able to tolerate oral medications. Patient identified as appropriate candidate for IV to PO conversion of Levaquin based on the following criteria: * Afebrile for greater than or equal to 12 hours * Receiving oral/enteral medications and/or tolerating oral/enteral diet for greater than 24 hours * Improvement in clinical condition evidenced by .. WBC count of [] 10^3/uL and trending downward, resolution of signs/symptoms of illness * Hemodynamically stable Automatic conversion to: Levaquin 750 mg PO every 48 hours
[2016-11-20] MEDS ORDERED: ALPRAZOLAM 0.5 MG TAB PO SCH (21:00)
[2016-11-20] MEDS: PRAVASTATIN SOD 40 MG TAB PO SCH (21:16)
--- NOTE | 2016-11-20 23:10 | Progress Note ---
Medicine Progress Note Date & Time of Visit: Nov 20, 2016 at 13:33. Subjective Pt doing well today after a small bout of delirium this morning. -tolerating PO Objective Last 8 Hrs Date Time Temp Pulse Resp B/P Pulse Ox O2 Delivery O2 Flow Rate FiO2 11/20/16 12:09 70 12 95 Nasal Cannula 2.0 11/20/16 12:00 95 Nasal Cannula 2.0 11/20/16 11:03 36.4 64 20 102/54 96 11/20/16 08:00 94 Nasal Cannula 2.0 11/20/16 07:56 36.6 84 20 134/67 94 Nasal Cannula 2.0 11/20/16 07:30 71 16 96 Nasal Cannula 2.0 Physical Exam: GEN: WNWD, appears anxious, alert and appropriate HEENT: NC/AT, normal sclerae CARDIO: reg rate, S1/2 heard without m/g/r LUNGS: CTA bilaterally, no crackles, rales or wheezes, good diaphragmatic excursion, diminished breath sounds in upper lung warren. ABD: soft, non-tender, non-distended, no rebound or guarding EXTREMITY: no LE swelling or edema, extremities are warm and well-perfused NEURO: no gross focal deficits MUSC: moving all extremities equally SKIN: warm and dry Laboratory Results: Last 24 Hours Test 11/20/16 05:44 White Blood Count 10.11 K/uL Red Blood Count 3.92 M/uL Hemoglobin 12.0 g/dL Hematocrit 34.8 % Mean Corpuscular Volume 88.8 fL Mean Corpuscular Hemoglobin 30.6 pg Mean Corpuscular Hemoglobin Concent 34.5 g/dl RDW Standard Deviation 46.2 fL RDW Coefficient of Variation 14.1 % Platelet Count 178 K/uL Mean Platelet Volume 8.9 fL Sodium Level 136 mmol/L Potassium Level 3.8 mmol/L Chloride Level 102 mmol/L Carbon Dioxide Level 27 mmol/L Anion Gap 7.0 mmol/L Blood Urea Nitrogen 19 mg/dl Creatinine 1.40 mg/dl Est Creatinine Clear Calc Drug Dose 34.8 ml/min Estimated GFR () 52.0 Estimated GFR (Non- 44.9 BUN/Creatinine Ratio 13.6 Random Glucose 92 mg/dl Calcium Level 8.5 mg/dl Assessment & Plan 85 yo M with SOB and chest pain 2/2 CAP 1. CAP-improved somewhat overnight, afebrile, no coughing, no rigors or chills reported but still requiring oxygen. Cont Levaquin at renal dosing for the next 5-7 days. Duonebs ordered for comfort. He has a h/o COPD but is not actively wheezing and I do not believe this is a COPD exacerbation. Blood Cx are negative. Flu PCR negative Sputum culture ordered. 2. Enterococcus faecalis UTI-sensitive to FQ. Pt still has many urination issues. Will plan to clear infection and have him follow with Urology as an outpatient if symptoms do not improve. 3. Chronic pain -including chest pain, ACS not present, feel this is 2/2 pneumonia as above. Cont supportive care with Tylenol/Tramadol PRN as this is working 4. Hypophosphatemia-repleted 5. Leukocytosis-improved 6. COPD-stable, but will give Duonebs for PNA. Do not believe this is an exacerbation with no wheezing or cough or sputum changes 7. HTN-controlled, cont home meds 8. CKD III-at baseline, renally dose meds, avoid nephrotoxic substances 9. Tachybrady syndrome s/p PM 10. Anxiety-significant, takes Xanax at home, cont this as inpatient 11. 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 Rule out UTI as above the defer to Urology as outpatient DVT prophy: heparin Full code Dispo-likely to home in 1-2 days, PT/OT ordered. Discussed treatment plan with his daughter, who is at bedside. Emily Askew DO [facility] Hospitalist Current Inpatient Medications: Current Inpatient Medications Medications (Trade) Dose Ordered Sig/Avelino Route Start Time Stop Time Status Last Admin Dose Admin Heparin Sodium (Porcine) (Heparin Sq 5000 Unit/0.5ml) 5,000 unit Q8H SQ 11/18/16 22:00 12/18/16 21:59 11/20/16 05:10 5,000 UNIT Polyethylene (Miralax Powder Packet) 17 gm DAILY PRN PO 11/18/16 18:45 12/18/16 18:44 Ondansetron HCl (Zofran Inj) 4 mg Q6H PRN IV 11/18/16 18:45 12/18/16 18:44 Amlodipine Besylate (Norvasc Tab) 2.5 mg QAM PO 11/19/16 09:00 12/19/16 08:59 11/20/16 08:40 2.5 MG Lisinopril (Zestril Tab) 5 mg DAILY PO 11/19/16 09:00 12/19/16 08:59 11/20/16 08:39 5 MG Pravastatin Sodium 40 mg 40 mg HS PO 11/18/16 21:00 12/18/16 20:59 11/19/16 20:37 40 MG Pantoprazole Sodium 40 mg/ Syringe 10 ml @ 5 mls/min DAILY@11 IV 11/19/16 11:00 12/19/16 10:59 11/20/16 12:15 5 MLS/MIN Levofloxacin/Prmx (Levaquin / D5W/ Premixed D5W) 150 ml @ 100 mls/hr Q48H IV 11/20/16 11:00 11/25/16 10:59 11/20/16 12:15 100 MLS/HR Levofloxacin (Consult) 1 ea UD PRN N/A 11/18/16 20:00 12/18/16 19:59 Aspirin (Aspirin Chew) 81 mg QAM PO 11/19/16 09:00 12/19/16 08:59 11/20/16 08:41 81 MG Metoprolol Tartrate (Lopressor Tab) 12.5 mg BID PO 11/19/16 09:00 12/19/16 08:59 11/20/16 08:40 12.5 MG Acetaminophen (Tylenol Soln) 650 mg Q4H PRN PO 11/19/16 10:00 12/19/16 09:59 11/20/16 05:55 650 MG Tramadol HCl (Ultram Tab) 50 mg Q6H PRN PO 11/19/16 10:00 12/19/16 09:59 Alprazolam (Xanax Tab) 0.25 mg QD@0900 PO 11/20/16 09:00 12/20/16 08:59 11/20/16 08:44 0.25 MG Alprazolam (Xanax Tab) 0.25 mg HS PO 11/20/16 21:00 12/20/16 20:59 Rivastigmine Tartrate (Exelon Patch 4.6MG/24 Hr) 4.6 mg DAILY TD 11/21/16 09:00 12/21/16 08:59 Albuterol/ Ipratropium (Combivent Respimat Inh) 1 puffs QID INH 11/20/16 13:00 12/20/16 12:59 11/20/16 12:16 1 PUFFS Albuterol/ Ipratropium (Duoneb) 3 ml QID PRN INH 11/20/16 12:15 12/20/16 12:14
[2016-11-21] MEDS: ACETAMINOPHEN SOLN 650MG/20.3 ML UDC PO PRN (04:51)
[2016-11-21] MEDS ORDERED: TRAMADOL HCL 50 MG TAB PO ONE (05:27)
[2016-11-21] MEDS ORDERED: TRAMADOL HCL 50 MG TAB PO PRN (05:30)
[2016-11-21] MEDS: HEPARIN SOD 5000 UNIT/0.5 ML CARP SQ SCH (05:37)
[2016-11-21 06:02] LABS: HEMATOCRIT 36.3 % (42-52); MEAN CELL VOLUME 90.5 fL (80-100); MEAN CORPUSCULAR HEMOGLOBIN 31.2 pg (25-34); MEAN CORPUSCULAR HGB CONC 34.4 g/dl (32-36); MEAN PLATELET VOLUME 9.7 fL (7.4-10.4); PLATELET COUNT 207 K/uL (130-400); RED BLOOD COUNT 4.01 M/uL (4.7-6.1); WHITE BLOOD COUNT 8.41 K/uL (4.8-10.8)
[2016-11-21 06:36] LABS: BUN/CREATININE RATIO 12.2 (10-20); CALCIUM 8.3 mg/dl (8.5-10.1); CREATININE 1.5 mg/dl (0.60-1.40)
[2016-11-21 07:33] VITALS: BP_SYST 101; BP_SYST 108; BP_SYST 116; BP_DIAS 56; BP_DIAS 59; BP_DIAS 70; PULSE 67; PULSE 73; PULSE 79; TEMP 37.1; O2SAT 92
[2016-11-21 08:00] VITALS: O2SAT 92
[2016-11-21] MEDS: IPRATROPIUM BROMIDE/ALBUTEROL respimat INH INH SCH (08:27)
[2016-11-21] MEDS: ASPIRIN 81 MG CHEW PO SCH (08:27)
[2016-11-21] MEDS: METOPROLOL TARTRATE 25 MG TAB PO SCH (08:28)
[2016-11-21] MEDS: AMLODIPINE BESYLATE 5 MG TAB PO SCH (08:28)
[2016-11-21] MEDS: LISINOPRIL 5 MG TAB PO SCH (08:30)
[2016-11-21] MEDS: ALPRAZOLAM 0.25 MG TAB PO SCH (08:34)
[2016-11-21] MEDS ORDERED: RIVASTIGMINE TARTRATE 4.6 MG PATCH TD SCH (09:00)
[2016-11-21] MEDS: PANTOprazole INJ 40 MG in SYRINGE 0 ML IV SCH (11:10)
[2016-11-21] MEDS ORDERED: LVQ750 PO (11:37)
--- NOTE | 2016-11-21 11:41 | Discharge Instructions ---
Discharge Instructions Date of Service Nov 21, 2016. Admission Reason for Admission: Community Acquired Pneumonia Discharge Discharge Diagnosis / Problem: CAP, Acute cystitis Discharge Goals Goal(s): Decrease discomfort, Therapeutic intervention Activity Recommendations Activity Limitations: resume your previous activity . Instructions / Follow-Up Instructions / Follow-Up Please take all medications as instructed. You have a followup appointment with Dr. Ramos on 11/27@ 1050 for follow-up from this hospitalization. Please bring all paperwork with you to this appointment. I have ordered Home Health nursing to stop by for occupational health needs next week in the acute post-hospital setting. You will receive a call from someone regarding when this will take place. You will need a follow-up CXR in 4-6 weeks to ensure complete resolution of your pneumonia. Please continue with appointment scheduled for outpatient cystoscopy in mid- November as planned with Dr. Stovall to discuss urinary issues with her. It was a pleasure taking care of you! Call if you have any questions or problems. You can reach a [facility] hospitalist on duty at [facility] 24 hours a day by calling [phone]. Take care of yourself. Emily Askew DO [facility] Hospitalist Current Hospital Diet Patient's current hospital diet: AHA Diet (Heart Healthy) Discharge Diet Recommended Diet: AHA Diet (Heart Healthy) Pending Studies Studies pending at discharge: yes List of pending studies: Final blood culture results Medical Emergencies . Who to Call and When: Medical Emergencies: If at any time you feel your situation is an emergency, please call 911 immediately. . Non-Emergent Contact Non-Emergency issues call your: Primary Care Provider . . "Provider Documentation" section prepared by Emily Askew. VTE Core Measure Inpt VTE Proph given/why not?: Unfractionated heparin SQ, SCD's
[2016-11-21 11:46] VITALS: BP 108/56; PULSE 79; TEMP 37.1; O2SAT 92
[2016-11-21] MEDS ORDERED: ACET160S3 PO (13:59)
[2016-11-21] MEDS ORDERED: ULT50X PO (13:59)
[2016-11-22] MEDS ORDERED: LEVOFLOXACIN 750 MG TAB PO SCH (11:00)
--- NOTE | 2016-11-26 15:54 | Discharge Summary ---
Discharge Summary Date of Service Nov 26, 2016. Discharge Summary Admission Date: Nov 18, 2016 at 19:09 Discharge Date: Nov 21, 2016 Discharge Disposition: Home with services Principal Diagnosis: 1. CAP 2. E. faecalis UTI Procedures: None. Vaccinations: None. Pending Studies/Follow-Up: see dc instructions below. Medication Reconciliation New Medications: Acetaminophen (Acetaminophen) 160 Mg/5 Ml Yen 650 MG PO Q4H PRN for pain for 30 Days, #2400 ML 2 Refills Levofloxacin (Levofloxacin) 750 Mg Tab 750 MG PO Q2D@1100 for 2 Days, #2 TAB Take one pill every other day starting on 11/22. Last dose on 11/24. Tramadol HCl (Tramadol HCl) 50 Mg Tab 25 MG PO Q6H PRN for pain for 30 Days, #60 TAB Continued Medications: Albuterol (Ventolin Hfa) 60 Puffs/5400 Mcg Aers 2 PUFFS INH QID Alprazolam (Alprazolam) 0.25 Mg Tab 0.25 MG PO TID PRN for NERVOUSNESS Amlodipine (Norvasc) 2.5 Mg Tab 2.5 MG PO QAM, TAB Aspirin (Aspirin Ec) 81 Mg Tab 81 MG PO QAM Lisinopril (Lisinopril) 5 Mg Tab 5 MG PO DAILY Metoprolol Succ (Toprol Xl) (Toprol-Xl) 25 Mg Tabcr 25 MG PO DAILY, TAB Omeprazole (Prilosec) 20 Mg Capcr 20 MG PO DAILYBB, CAP Pravastatin Sodium (Pravachol) 40 Mg Tab 40 MG PO HS, TAB Rivastigmine Tartrate (Exelon) 4.6 Mg Tdsy 1 PATCH TD DAILY Admission Information HPI (per Admitting provider): 85 yoM who presents with worsening of shortness of breath, chest pain rigors and increased oxygen need over the past 5 days. The patient lives with his at home who wears oxygen and he states that he borrowed her oxygen two nights ago and felt much better. He denies cough, fevers at home, sick contacts or recent travel history except for recent travel to [place]. He took his to the doctor's office today who was attached to his PCP office, and asked to see his PCP urgently. He was found to have a fever of 102.3 and a pulse of 103. He was ill-appearing and tachypneic and was sent via ambulance to the ER. A CXR revealed pneumonia in the RUL and labwork revealed a WBC count of 15K and possible UTI. Phos was also very low at 1.2. He still febrile but was hemodynamically stable and not requiring oxygen. He was given Levaquin 750mg, APAP and NS 500cc. On further investigation of ROS he reports chest pain chronically which is an achy pain not made better or worse by anything in particular and not associated with SOB, sweating, palpitations, etc "it's just there. He is very anxious and constantly moving and going taking care of his and daughter at home. He reports that he rarely sleeps. In the last 5 days he has had rigors and cold intolerance. He appears very stressed and overwhelmed. He reports chronic whole body pain that is there all the time and states that he doesn't want anything for pain because it will get stuck in his throat. He has a known Zenker's diverticulum. If the pain medication can be made into a liquid, he states that he would be amenable. He has recently had a cystoscopy in Aug by Dr. Stovall post-biopsy for bladder cancer which revealed no active cancer present but there was a healing white patch that will be re-evaluated in 3 months. He underwent TURBT surgery and was give intravesicular mitomycin for which he developed a chemical cystitis. He states that he has dysuria every time he urinates, and has urgency as well, so he can't tell if he has a UTI. Physical Exam (per Admitting): GEN: WNWD, mild conversational dyspnea but able to communicate in full sentences off oxygen, alert and appropriate, appears very anxious HEENT: NC/AT, PERRL, normal sclerae, pharynx non-acute, no cervical, submandibular or supraclavicular LAD CARDIO: reg rate, S1/2 heard without m/g/r LUNGS: CTA bilaterally, no crackles, rales or wheezes, good diaphragmatic excursion ABD: soft, TTP in bilateral lower quadrants, non-distended, +BS EXTREMITY: RP and DP palpable 2+ bilat, no LE swelling or edema, extremities are warm and well-perfused NEURO: CN 2-12 grossly intact, sensation intact throughout, no gross focal deficits MUSC: 5/5 strength throughout, no focal deficits SKIN: warm and dry Hospital Course 85 yo M with SOB and chest pain 2/2 CAP 1. CAP-improved somewhat overnight, afebrile, no coughing, no rigors or chills reported but still requiring oxygen. Cont Levaquin at renal dosing for the next 5-7 days. Duonebs ordered for comfort. He has a h/o COPD but is not actively wheezing and I do not believe this is a COPD exacerbation. Blood Cx are negative. Flu PCR negative Sputum culture ordered. 2. Enterococcus faecalis UTI-sensitive to FQ. Pt still has many urination issues. Will plan to clear infection and have him follow with Urology as an outpatient if symptoms do not improve. 3. Chronic pain -including chest pain, ACS not present, feel this is 2/2 pneumonia as above. Cont supportive care with Tylenol/Tramadol PRN as this is working 4. Hypophosphatemia-repleted 5. Leukocytosis-improved 6. COPD-stable, but will give Duonebs for PNA. Do not believe this is an exacerbation with no wheezing or cough or sputum changes 7. HTN-controlled, cont home meds 8. CKD III-at baseline, renally dose meds, avoid nephrotoxic substances 9. Tachybrady syndrome s/p PM 10. Anxiety-significant, takes Xanax at home, cont this as inpatient 11. 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 Rule out UTI as above the defer to Urology as outpatient On day of discharge, he was afebrile and hemodynamically stable, ambulating at baseline and otherwise improved since admission. He was sent home in stable condition with close PCP follow-up in one weeks. Total time spent on discharge = 60 mins This includes examination of the patient, discharge planning, medication reconciliation, and communication with other providers. Discharge Instructions Discharge Instructions Date of Service Nov 21, 2016. Admission Reason for Admission: Community Acquired Pneumonia Discharge Discharge Diagnosis / Problem: CAP, Acute cystitis Discharge Goals Goal(s): Decrease discomfort, Therapeutic intervention Activity Recommendations Activity Limitations: resume your previous activity . Instructions / Follow-Up Instructions / Follow-Up Please take all medications as instructed. You have a followup appointment with Dr. Ramos on 11/27@ 1050 for follow-up from this hospitalization. Please bring all paperwork with you to this appointment. I have ordered Home Health nursing to stop by for occupational health needs next week in the acute post-hospital setting. You will receive a call from someone regarding when this will take place. You will need a follow-up CXR in 4-6 weeks to ensure complete resolution of your pneumonia. Please continue with appointment scheduled for outpatient cystoscopy in mid- November as planned with Dr. Stovall to discuss urinary issues with her. It was a pleasure taking care of you! Call if you have any questions or problems. You can reach a [facility] hospitalist on duty at [facility] 24 hours a day by calling [phone]. Take care of yourself. Emily Askew, DO [facility]ist Additional Copies To Gael Ramos M.D.
== END 2016-11-21 15:10 | disposition home health service (06) | DRG 190 ==
LOC: ENRESERVDT → ENRESERVTM → EDBD 14:15 → C.EDC 14:16 → C.MED 19:09 → EDBEDREQSVC 19:12
PROVIDERS: ADMIT Hospitalist; ATTEND Hospitalist
DX: J44.0 Chronic obstructive pulmonary disease with (acute) lower respiratory infection (principal); J18.9 Pneumonia, unspecified organism; N39.0 Urinary tract infection, site not specified; B95.2 Enterococcus as the cause of diseases classified elsewhere; R41.0 Disorientation, unspecified; E83.39 Other disorders of phosphorus metabolism; J45.909 Unspecified asthma, uncomplicated; G89.29 Other chronic pain; R07.9 Chest pain, unspecified; I12.9 Hypertensive chronic kidney disease with stage 1 through stage 4 chronic kidney disease, or unspecified chronic kidney disease; N18.3 Chronic kidney disease, stage 3 (moderate); F41.9 Anxiety disorder, unspecified; F03.90 Unspecified dementia, unspecified severity, without behavioral disturbance, psychotic disturbance, mood disturbance, and anxiety; Z95.0 Presence of cardiac pacemaker; Z87.891 Personal history of nicotine dependence; Z85.51 Personal history of malignant neoplasm of bladder; Z79.82 Long term (current) use of aspirin; Z79.899 Other long term (current) drug therapy

== ENCOUNTER 2018-10-15 09:58 | Inpatient (IN) ==
[2018-10-15] MEDS ORDERED: SODIUM CHLORIDE 0.9% 500 ML IV SCH (10:30)
[2018-10-15 10:56] LABS: Basophils # (auto) 0.01 K/uL (0-0.2); Basophils % (auto) 0.1 %; Hematocrit (blood only) 43.5 % (42-52); Hemoglobin 14.8 g/dL (14.0-18.0); Immature Granulocytes # (auto) 0.01 K/uL (0.00-0.02); Immature Granulocytes % (auto) 0.1 %; Lymphocytes # (auto) 0.86 K/uL (1.2-3.4); Lymphocytes % (auto) 10.5 %; Mean Corpuscular Volume 95.4 fL (80-100); Mean Platelet Volume 9.9 fL (7.4-10.4); Monocytes # (auto) 0.64 K/uL (0.11-0.59); Monocytes % (auto) 7.8 %; Neutrophils # (auto) 6.64 K/uL (1.4-6.5); Neutrophils % (auto) 81.5 %; Platelet Count 155 K/uL (130-400); RDW Coefficient of Variation 13.7 % (11.5-14.5); RDW Standard Deviation 47.9 fL (36.4-46.3); Red Blood Count 4.56 M/uL (4.7-6.1); White Blood Count 8.16 K/uL (4.8-10.8)
--- NOTE | 2018-10-15 10:56 | XRay Report ---
XR chest 1V portable CLINICAL HISTORY: weakness mental status change COMPARISON STUDY: 11/18/2016 FINDINGS: Mild bibasilar parenchymal infiltrative change. Mid and upper lungs are clear. Moderate Bas kim emphysematous change. Permanent bipolar cardiac pacemaker. IMPRESSION: Mild bibasilar parenchymal infiltrative change. Emphysematous change. The above report was generated using voice recognition software. It may contain grammatical, syntax or spelling errors. Electronically signed by: Jett Anderson M.D. 10/15/2018 10:54 AM
[2018-10-15 11:04] LABS: INR 1.1 (0.9-1.1); Partial Thromboplastin Time 26.1 Seconds (21.0-31.0); Prothrombin Time 11.4 Seconds (9.0-12.0)
[2018-10-15 11:13] LABS: Albumin Level 3.7 gm/dl (3.4-5.0); BUN Creatinine Ratio 12.8 (10-20); Calcium 8.5 mg/dl (8.5-10.1); Creatinine Clr Calc Pharmacy 25.6 ml/min; Est GFR (African American) 37.1; Magnesium 2.1 mg/dl (1.8-2.4); Potassium 4.1 mmol/L (3.5-5.1)
[2018-10-15 11:24] LABS: Bilirubin,Total 0.9 mg/dl (0.2-1); Globulin 3.9 gm/dl (2.5-4.0); Total Protein 7.6 gm/dl (6.4-8.2); Troponin I 0.03 ng/ml (0-0.045)
--- NOTE | 2018-10-15 11:47 | CT Scan Report ---
CT SCAN OF THE BRAIN WITHOUT IV CONTRAST CLINICAL HISTORY: Change in mental status. COMPARISON STUDY: No priors. TECHNIQUE: Unenhanced axial CT scan of the brain is performed from the vertex to the skull base. A do se lowering technique was utilized adhering to the principles of ALARA. CT DOSE: 614.27 mGy.cm FINDINGS: Brain parenchyma: There are age-related involutional changes noting mild subcortical and periventric ular microangiopathic change. There is no hemorrhage, mass effect, or evidence of acute territorial i schemia by CT criteria. A 2.6 cm arachnoid cyst is noted in the anterior left temporal fossa. Engle-wh ite matter differentiation is preserved. No extra-axial fluid collection is seen. Ventricles, sulci, cisterns: Prominent secondary to involutional change. Intracranial vasculature: There is atherosclerotic calcification of the cavernous carotid and vertebr al arteries. Calvarium: Unremarkable. Sinuses and mastoids: The visualized paranasal sinuses are clear. There is a right mastoid effusion. The left mastoid air cells are well pneumatized. Orbits: The bony orbits are grossly intact. IMPRESSION: There is no hemorrhage, mass effect, or evidence of acute territorial ischemia by CT carolynn hutchison. Electronically signed by: Fabio Saavedra M.D. 10/15/2018 11:46 AM
[2018-10-15 12:16] LABS: Appearance Urine Clear (Clear); Bacteria Urine Automated Negative (Negative); Bilirubin Urine Negative (Negative); Cast Urine Automated 0 /lpf (0-5); Color Urine Yellow; Glucose Urine UA Negative (Negative); Ketones Urine Negative (Negative); Leukocyte Esterase Urine Negative (Negative); Nitrite Urine Negative (Negative); Protein Urine Negative (Negative); Specific Gravity Urine 1.021 (1.000-1.030); Urobilinogen Urine Negative (Negative)
[2018-10-15] MEDS ORDERED: PIPERACILLIN/TAZOBACTAM 4.5 GM/120 ML BAG IV ONE (12:43)
--- NOTE | 2018-10-15 14:25 | History & Physical Report ---
Date of Service October 15, 2018 Assessment & Plan (1) Influenza: (2) Hypoxia: (3) Pneumonia: SOB, chills x 3-4 days. Sent in from PCP office for symptoms and T: 99.5F , BP: 90/60 In ER pt afebrile. P: 74-58, R: 20, BP: 115/73, 89% on RA up to 93% on 2L oxygen NC. WBC: 8, Lactate: 1.3 +Influenza A CXR: Mild bibasilar parenchymal infiltrative change. Emphysematous change. -In ER was given zosyn, 500ml NSS -Possible pneumonia - CAP, ?aspiration - reported coughing with eating intermittently. Hx Zenkers diverticulum. -pending MRSA swab -pending blood cultures -continue supplemental oxygen -zosyn -IVF -tamiflu -may need to consider 2 step prior to discharge -nebs prn -aspiration precautions, speech consult to eval swallowing -cbc, bmp in am (4) COPD (chronic obstructive pulmonary disease): Does not appear to be COPD flare at this time, no wheezing Uses 2L oxygen NC HS -nebs prn -continue supplemental oxygen (5) Weakness: Weakness past couple of days. Probable secondary to underlying infection CT Head: no acute changes -PT/OT eval (6) CKD (chronic kidney disease), stage III: Cr: 1.8. baseline ~1.6 -monitor renal functions -renal dose meds (7) Hypertension: Stable -continue metoprolol, amlodipine with holding parameters -hold tomorrow am dose lisinopril and reassess (8) Tachy-jomar syndrome: S/P Pacemaker paced rhythm (9) Dyslipidemia: -continue pravastatin (10) Bladder cancer: S/P TURBT DVT Prophylaxis -Heparin SQ Full Code as per discussion with pt and pt's daughter Follows with Dr Jimenez for routine care Pt was seen with Dr Song. See addendum History of Present Illness Chief Complaint: SOB Primary Care Provider: Neena Jimenez MD Pt is 87 y/o M with PMH HTN, dyslipidemia, tachybrady syndrome s/p pacemaker, anxiety, dementia, COPD on 2L oxygen HS, CKD III, bladder CA s/p TURBT presented to ER from PCP office for SOB. Pt with hx dementia, history obtained with assistance of daughter. Reports past 3-4 days with cough, congestion, SOB and weakness. [place] chills, did not take temperature. Denies ill contacts. Pt reports chronic cough after eating, denies rakan choking episode. Hx Zenkers diverticulum per prior records. Doesn't think cough worse. Pt typically active and yesterday was shoveling snow. Pt's daughter reports when pt shoveling or working outside at baseline has SOB and CP and wonders he if requires continuous oxygen. Denies any current CP. [place] feels pt at baseline mental status. Had influenza vaccine this season. Denies diaphoresis, N/V/D/C, TOVAR, dizziness, syncope, vision changes, neck pain, orthopnea, palpitations, hemoptysis, sore throat, otalgia, abdominal pain, paresthesias, extremity edema , rashes, urinary symptoms. Allergies Allergy/AdvReac Type Severity Reaction Status Date / Time Sulfa (Sulfonamide Allergy Intermediate RASH Verified 10/15/18 13:19 Antibiotics) bee venom protein (honey bee) Allergy Unknown swollen Unverified 10/15/18 13:19 adhesive AdvReac Intermediate SKIN Verified 10/15/18 13:19 IRRITATIONS, BRUISES verapamil AdvReac Mild N/V Verified 10/15/18 13:19 Home Medications Home Medications Medication Instructions Recorded Confirmed Type albuterol sulfate [Ventolin HFA] 2 puff INHALATION Q6H PRN 10/15/18 10/15/18 History alprazolam 0.25 mg PO TID PRN 10/15/18 10/15/18 History amlodipine 2.5 mg PO HS 10/15/18 10/15/18 History lisinopril 5 mg PO DAILY 10/15/18 10/15/18 History lutein-zeaxanthin 1 cap PO DAILY 10/15/18 10/15/18 History metoprolol succinate 2 tab PO DAILY 10/15/18 10/15/18 History pravastatin 40 mg PO HS 10/15/18 10/15/18 History rivastigmine 4.5 mg TOPICAL QAM 10/15/18 10/15/18 History Past Med/Surg History Medical History Anxiety (Chronic) Dementia (Chronic) Dyslipidemia (Chronic) Tachy-jomar syndrome (Chronic) CKD (chronic kidney disease), stage III (Chronic) Pacemaker (Chronic) Hypertension (Chronic) COPD (chronic obstructive pulmonary disease) (Chronic) Bladder cancer (Chronic) S/P TURBT Community acquired pneumonia (Resolved) History of bladder surgery (Resolved) Family History Other Diabetes Leukemia Lung cancer Social History Current Living Situation: Spouse and Family Current Living Situation Comment: Lives with daughter current occupational status: retired Other Information That Helps Us Care for You: Yes (pt takes care of his at home) Feels Safe at Home: Yes and No Is there a partner from a previous relationship who is making you feel unsafe now?: No Any Concerns about Your Family Situation : No Would You Like to Speak to Someone About Your Situation: No Smoking Status: Unknown if ever smoked Hx Alcohol Use: No Hx Substance Use: No Preferred Language: Danish Communication Ability: Impaired Reed Cleaner Required: No Review of Systems All systems reviewed & are unremarkable except as noted in HPI & below Physical Exam 2 Vital Signs (Past 24 Hours): Last Vital Signs Temp 36.8 C 10/15/18 10:01 Pulse 58 L 10/15/18 12:58 Resp 18 10/15/18 12:58 BP 118/54 L 10/15/18 12:58 Pulse Ox 93 10/15/18 12:58 Physical Exam: General: no acute distress, WDWN Head: normocephalic, atraumatic Eyes: PERRL, EOM's intact, conjunctiva non-injected, anicteric ENT: normal inspection external ears, nose, mucous membranes dry Neck: supple, trachea midline Lungs: no respiratory distress on 2L oxygen NC with O2 sats:93%, diminished throughout without rales, wheezing or rhonchi noted; no cough noted CV: RRR, no murmur, no pretibial edema Abd: normal BS, soft, non-tender Ext: no cyanosis, no calf tenderness Neuro: A&O to person, place, no focal deficits noted, normal affect Skin: warm, dry Results & Data Laboratory Results Short CBC 10/15/18 Range/Units 10:36 WBC 8.16 (4.8-10.8) K/uL Hgb 14.8 (14.0-18.0) g/dL Hct 43.5 (42-52) % Plt Count 155 (130-400) K/uL BMP 10/15/18 10:36 Sodium 134 L Potassium 4.1 Chloride 100 Carbon Dioxide 28 BUN 24 H Creatinine 1.83 H Glucose 99 Calcium 8.5 Cardiac Enzymes 10/15/18 Range/Units 10:36 Troponin I 0.030 (0-0.045) ng/ml Liver Function 10/15/18 Range/Units 10:36 Total Bilirubin 0.9 (0.2-1) mg/dl AST 26 (15-37) U/L ALT 18 (12-78) U/L Alkaline Phosphatase 60 (45-117) U/L Albumin 3.7 (3.4-5.0) gm/dl Urine 10/15/18 Range/Units 12:00 Urine Color Yellow Urine Appearance Clear (Clear) Urine pH 5.0 (4.5-7.5) Ur Specific [place] 1.021 (1.000-1.030) Urine Protein Negative (Negative) Urine Glucose (UA) Negative (Negative) Diagnostic Findings CXR: IMPRESSION: Mild bibasilar parenchymal infiltrative change. Emphysematous change. CT HEAD: IMPRESSION: There is no hemorrhage, mass effect, or evidence of acute territorial ischemia by CT criteria. ECG Findings: + paced rhythm Supervising Physician Co-Signing Physician Notes HISTORY: Record reviewed. Patient interviewed and examined in his room. Care coordinated with Kenzie Avalos PA-C. Please refer to her documentation for patient's history. Briefly, 87 YO M with hx of hypertension, COPD, dementia, and other problems. Seen in clinic this morning with worsening confusion, reported fever, nonproductive cough. Referred to ED for evaluation. EXAM: General- appears to be acutely ill Lungs- scattered rhonchi; no respiratory distress Cardiovascular- RRR; II/ systolic murmur LSB; no gallop appreciated; no JVD; no pretibial edema Abdomen- + bowel sounds, soft, ? lower abdominal tenderness Extremities- no cyanosis; no calf tenderness Neuro- alert, moderately confused Skin- warm & dry DATA: BUN 24, creatinine 1.83. WBC 8160. 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 Nasal swab positive for MRSA. Other lab studies as noted. Chest x-ray reviewed and demonstrated bibasilar densities. EKG performed at 1022 reviewed and demonstrated intermittent atrial-paced rhythm. ASSESSMENT AND PLAN: Influenza A. Rx with oseltamivir, dose adjusted for renal function. Possible bacterial pneumonia. Nasal MRSA +. Rx with doxycycline + piperacillin / tazobactam. COPD Exacerbation secondary to flu +/- pneumonia. Bronchodilators PRN. Titrate O2 to maintain sats in low 90's. Abdominal pain. Check KUB. Analgesics PRN. Please refer to KAMARI Fernández's documentation for discussion of other issues. _ (1) Pneumonia Aspiration pneumonia type: Laterality: right Lung location: unspecified part of lung Pneumonia type: due to unspecified organism Qualified Code(s): J18.9 - Pneumonia, unspecified organism
[2018-10-15 15:14] LABS: Influenza B virus by PCR Neg for Influ B (Neg)
--- NOTE | 2018-10-15 16:53 | Emergency Department Note ---
Entered by Reece Romero acting as a scribe for History of Present Illness General Chief complaint: Weakness Stated complaint: WEAKNESS, TIRED, SOB, CONFUSED Time Seen by Provider: 10/15/18 10:01 Source: patient Limitations: no limitations History of Present Illness Provider complaint: SOB Onset (ago): day(s) Location: chest Maximum Pain Intensity: 5 Quality: + other (SOB) Exacerbated By: + other (Walking/exertion) Associated symptoms: + diaphoresis, + shortness of breath and + weakness Treatments prior to arrival: other (Evaluation by PCP) The patient is an 87 year old male who presents to the Emergency Room with complaints of worsening shortness of breath and general weakness. The patient reports to the ED today from his primary care office for concern over possible infection. Per PCP note, the patient was hypotensive in the 90s and appeared to be pale/diaphoretic on exam in the office this morning. Upon arrival to the ED the patient notes that he has been feeling more short of breath than usual. This shortness of breath is worsened with walking/exertion. He notes that he has been coughing intermittently as well, but denies any chest pain. He does have oxygen at home, but he only wears it at night. The patient states that he also has a constant pain to the left side of his abdomen. He adds that this pain has been there for 6 months to 1 year. There has not been any associated vomiting or diarrhea. The patient adds that he was shoveling a lot of snow yesterday and got "freezing cold" while he was outside. The patient's daughter at bedside states that the patient has a history of dementia, but has been more confused than usual recently. Home Medications Home Medications Medication Instructions Recorded Confirmed Type albuterol sulfate [Ventolin HFA] 2 puff INHALATION Q6H PRN 10/15/18 10/15/18 History alprazolam 0.25 mg PO TID PRN 10/15/18 10/15/18 History amlodipine 2.5 mg PO HS 10/15/18 10/15/18 History lisinopril 5 mg PO DAILY 10/15/18 10/15/18 History lutein-zeaxanthin 1 cap PO DAILY 10/15/18 10/15/18 History metoprolol succinate 2 tab PO DAILY 10/15/18 10/15/18 History pravastatin 40 mg PO HS 10/15/18 10/15/18 History rivastigmine 4.5 mg TOPICAL QAM 10/15/18 10/15/18 History Allergies Allergy/AdvReac Type Severity Reaction Status Date / Time Sulfa (Sulfonamide Allergy Intermediate RASH Verified 10/15/18 13:19 Antibiotics) bee venom protein (honey bee) Allergy Unknown swollen Unverified 10/15/18 13:19 adhesive AdvReac Intermediate SKIN Verified 10/15/18 13:19 IRRITATIONS, BRUISES verapamil AdvReac Mild N/V Verified 10/15/18 13:19 Past Med/Surg History Medical History Anxiety (Chronic) Dementia (Chronic) Dyslipidemia (Chronic) Tachy-jomar syndrome (Chronic) CKD (chronic kidney disease), stage III (Chronic) Pacemaker (Chronic) Hypertension (Chronic) COPD (chronic obstructive pulmonary disease) (Chronic) Bladder cancer (Chronic) S/P TURBT Community acquired pneumonia (Resolved) History of bladder surgery (Resolved) Family History Other Diabetes Leukemia Lung cancer Social History Current Living Situation: Spouse and Family Current Living Situation Comment: Lives with daughter current occupational status: retired Other Information That Helps Us Care for You: Yes (pt takes care of his at home) Feels Safe at Home: Yes and No Is there a partner from a previous relationship who is making you feel unsafe now?: No Any Concerns about Your Family Situation : No Would You Like to Speak to Someone About Your Situation: No Smoking Status: Unknown if ever smoked Hx Alcohol Use: No Hx Substance Use: No Preferred Language: Swiss Communication Ability: Impaired Explosives Handler Required: No Review of Systems See HPI for pertinent positives & negatives. and A total of 10 systems reviewed and were otherwise negative Physical Exam Vital Signs Vital Signs - 24 hr 10/15/18 10:01 10/15/18 11:27 10/15/18 11:28 Temperature 36.8 C Temperature Source Oral Sepsis Recent Fever Within 48 Hours No Sepsis Action Taken by Nursing No Action Required Pulse Rate - Lying 57 L Pulse Rate - Sitting 67 Pulse Rate - Standing 75 Pulse Rate 74 Pulse Rate [Finger] Respiratory Rate 20 Respiratory Effort / Characteristics Non-Labored Respiratory Depth Normal Blood Pressure - Lying 112/59 L Blood Pressure - Sitting 121/72 Blood Pressure- Standing 114/70 Blood Pressure 115/73 Blood Pressure [Right Arm] Blood Pressure Mean 87 Blood Pressure Mean [Right Arm] Pulse Oximetry 89 L 92 Oxygen Delivery Method Room Air Room Air Oxygen Flow Rate 10/15/18 11:40 10/15/18 12:55 10/15/18 12:58 Temperature Temperature Source Sepsis Recent Fever Within 48 Hours Sepsis Action Taken by Nursing Pulse Rate - Lying Pulse Rate - Sitting Pulse Rate - Standing Pulse Rate Pulse Rate [Finger] 63 58 L Respiratory Rate 18 18 Respiratory Effort / Characteristics Respiratory Depth Normal Blood Pressure - Lying Blood Pressure - Sitting Blood Pressure- Standing Blood Pressure Blood Pressure [Right Arm] 115/64 118/54 L Blood Pressure Mean Blood Pressure Mean [Right Arm] 81 75 Pulse Oximetry 94 88 L 93 Oxygen Delivery Method Room Air Room Air Nasal Cannula Oxygen Flow Rate 2 10/15/18 15:21 10/15/18 15:53 Temperature Temperature Source Sepsis Recent Fever Within 48 Hours Sepsis Action Taken by Nursing Pulse Rate - Lying Pulse Rate - Sitting Pulse Rate - Standing Pulse Rate 71 Pulse Rate [Finger] 61 Respiratory Rate 25 H 21 Respiratory Effort / Characteristics Respiratory Depth Blood Pressure - Lying Blood Pressure - Sitting Blood Pressure- Standing Blood Pressure 134/91 Blood Pressure [Right Arm] 115/52 L Blood Pressure Mean Blood Pressure Mean [Right Arm] 73 Pulse Oximetry 98 95 Oxygen Delivery Method Nasal Cannula Nasal Cannula Oxygen Flow Rate 3 3 GENERAL: Patient is in no acute distress. HEENT: No acute trauma, normocephalic atraumatic, mucous membranes moist, no nasal congestion, no scleral icterus. NECK: No stridor, no adenopathy, no meningismus, trachea is midline. LUNGS: Breath sounds are diminished bilaterally, but clear. No wheeze, no rhonchi, breath sounds equal. HEART: Without murmurs gallops or rubs, regular rate and rhythm. ABDOMEN: Soft, with mild tenderness in the left upper quadrant. Bowel sounds positive, no hernias, no peritonitis. EXTREMITIES: No cyanosis or edema, full range of motion of all the joints without pain or difficulty, no signs for acute trauma. NEUROLOGIC: Oriented x 3, no acute motor or sensory deficits, no focal weakness. SKIN: No rash, no jaundice, no diaphoresis. Course 100/: Past medical records reviewed. The patient was evaluated in room C9, and a complete history and physical examination were performed. 1128: Patient's orthostatic vitals were negative. 1232: I reviewed the patient's case with Dr. Duncan Barajas Hospitalist. He would like me to speak with the family regarding their thougths about hospital admission. 1240: I spoke with the family at this time. Nursing staff informed me that his oxygen saturation dropped to 87% and required supplemental oxygen. The patient will be brought in for admission to the [facility] service. Dr. Song will admit the patient. Consultations Consultation #1: 1232: I reviewed the patient's case with Dr. Duncan Barajas Hospitalreed. He would like me to speak with the family regarding their thougths about hospital admission. Administered Medications Sodium Chloride (Nss 1000ml) 1,000 mls @ 80 mls/hr IV .[id number] [facility] Stop: 10/16/18 06:29 Last Admin: 10/15/18 18:10 Dose: 80 mls/hr Discontinued Medications Sodium Chloride (Nss) 500 mls @ 999 mls/hr IV .[id number] GIULIANO Stop: 10/15/18 11:00 Last Infusion: 10/15/18 11:58 Dose: 0 mls/hr Admin: 10/15/18 11:27 Dose: 999 mls/hr Piperacillin Sod/Tazobactam Sod (Zosyn) 4.5 gm in 120 mls @ 240 mls/hr IV NOW ONE Stop: 10/15/18 13:12 Last Infusion: 10/15/18 13:37 Dose: 0 mls/hr Admin: 10/15/18 13:07 Dose: 240 mls/hr Medical Decision Making Differential Diagnosis Differential Diagnosis includes: Bactermia, sepsis, dehydration, [place], pneumonia, bronchitis, anemia, electrolyte or metabolic abnormality, UTI, intracranial bleeding, and stroke. Medical Records Attestation: I reviewed the patient's medical records. Home Medications Current Medication List: was personally reviewed by me Laboratory Data Attestation: I reviewed the patient's lab results. Result diagrams: 10/15/18 10:36 10/15/18 10:36 Lab Results 10/15/18 10/15/18 10/15/18 Range/Units 10:36 10:36 10:36 WBC 8.16 (4.8-10.8) K/uL RBC 4.56 L (4.7-6.1) M/uL Hgb 14.8 (14.0-18.0) g/dL Hct 43.5 (42-52) % MCV 95.4 (80-100) fL MCH 32.5 (25-34) pg MCHC 34.0 (32-36) g/dL RDW Std Deviation 47.9 H (36.4-46.3) fL RDW Coeff of Roxana 13.7 (11.5-14.5) % Plt Count 155 (130-400) K/uL MPV 9.9 (7.4-10.4) fL Immature Gran % (Auto) 0.1 % Neut % (Auto) 81.5 % Lymph % (Auto) 10.5 % Swisher % (Auto) 7.8 % Eos % (Auto) 0.0 % Baso % (Auto) 0.1 % Immature Gran # (Auto) 0.01 (0.00-0.02) K/uL Neut # (Auto) 6.64 H (1.4-6.5) K/uL Lymph # (Auto) 0.86 L (1.2-3.4) K/uL Swisher # (Auto) 0.64 H (0.11-0.59) K/uL Eos # (Auto) 0.00 (0-0.5) K/uL Baso # (Auto) 0.01 (0-0.2) K/uL PT 11.4 (9.0-12.0) Seconds INR 1.1 (0.9-1.1) APTT 26.1 (21.0-31.0) Seconds PTT Ratio 1.0 Sodium 134 L (136-145) mmol/L Potassium 4.1 (3.5-5.1) mmol/L Chloride 100 (98-107) mmol/L Carbon Dioxide 28 (21-32) mmol/L Anion Gap 7.0 (3-11) BUN 24 H (7-18) mg/dl Creatinine 1.83 H (0.6-1.4) mg/dl Est Cr Clr Drug Dosing 25.6 ml/min Est GFR ( Amer) 37.1 Est GFR (Non-Af Amer) 32.0 BUN/Creatinine Ratio 12.8 (10-20) Glucose 99 (70-99) mg/dl Lactate (0.4-2.0) mmol/L Calcium 8.5 (8.5-10.1) mg/dl Magnesium 2.1 (1.8-2.4) mg/dl Total Bilirubin 0.9 (0.2-1) mg/dl AST 26 (15-37) U/L ALT 18 (12-78) U/L Alkaline Phosphatase 60 (45-117) U/L Troponin I 0.030 (0-0.045) ng/ml Total Protein 7.6 (6.4-8.2) gm/dl Albumin 3.7 (3.4-5.0) gm/dl Globulin 3.9 (2.5-4.0) gm/dl Albumin/Globulin Ratio 1.0 (0.9-2) TSH 0.879 (0.300-4.500) uIu/ml Urine Color Urine Appearance (Clear) Urine pH (4.5-7.5) Ur Specific [place] (1.000-1.030) Urine Protein (Negative) Urine Glucose (UA) (Negative) Urine Ketones (Negative) Urine Blood (Negative) Urine Nitrite (Negative) Urine Bilirubin (Negative) Urine Urobilinogen (Negative) Ur Leukocyte Esterase (Negative) Urine WBC (Auto) (0-5) /hpf Urine RBC (Auto) (0-4) /hpf U Hyaline Cast (Auto) (0-5) /lpf U Epithel Cells (Auto) (0-5) /lpf Urine Bacteria (Auto) (Negative) Influenza Type A (PCR) (Neg) Influenza Type B (PCR) (Neg) 10/15/18 10/15/18 10/15/18 Range/Units 10:36 12:00 14:20 WBC (4.8-10.8) K/uL RBC (4.7-6.1) M/uL Hgb (14.0-18.0) g/dL Hct (42-52) % MCV (80-100) fL MCH (25-34) pg MCHC (32-36) g/dL RDW Std Deviation (36.4-46.3) fL RDW Coeff of Roxana (11.5-14.5) % Plt Count (130-400) K/uL MPV (7.4-10.4) fL Immature Gran % (Auto) % Neut % (Auto) % Lymph % (Auto) % Swisher % (Auto) % Eos % (Auto) % Baso % (Auto) % Immature Gran # (Auto) (0.00-0.02) K/uL Neut # (Auto) (1.4-6.5) K/uL Lymph # (Auto) (1.2-3.4) K/uL Swisher # (Auto) (0.11-0.59) K/uL Eos # (Auto) (0-0.5) K/uL Baso # (Auto) (0-0.2) K/uL PT (9.0-12.0) Seconds INR (0.9-1.1) APTT (21.0-31.0) Seconds PTT Ratio Sodium (136-145) mmol/L Potassium (3.5-5.1) mmol/L Chloride (98-107) mmol/L Carbon Dioxide (21-32) mmol/L Anion Gap (3-11) BUN (7-18) mg/dl Creatinine (0.6-1.4) mg/dl Est Cr Clr Drug Dosing ml/min Est GFR ( Amer) Est GFR (Non-Af Amer) BUN/Creatinine Ratio (10-20) Glucose (70-99) mg/dl Lactate 1.3 (0.4-2.0) mmol/L Calcium (8.5-10.1) mg/dl Magnesium (1.8-2.4) mg/dl Total Bilirubin (0.2-1) mg/dl AST (15-37) U/L ALT (12-78) U/L Alkaline Phosphatase (45-117) U/L Troponin I (0-0.045) ng/ml Total Protein (6.4-8.2) gm/dl Albumin (3.4-5.0) gm/dl Globulin (2.5-4.0) gm/dl Albumin/Globulin Ratio (0.9-2) TSH (0.300-4.500) uIu/ml Urine Color Yellow Urine Appearance Clear (Clear) Urine pH 5.0 (4.5-7.5) Ur Specific [place] 1.021 (1.000-1.030) Urine Protein Negative (Negative) Urine Glucose (UA) Negative (Negative) Urine Ketones Negative (Negative) Urine Blood 1+ H (Negative) Urine Nitrite Negative (Negative) Urine Bilirubin Negative (Negative) Urine Urobilinogen Negative (Negative) Ur Leukocyte Esterase Negative (Negative) Urine WBC (Auto) 1-5 (0-5) /hpf Urine RBC (Auto) 5-10 H (0-4) /hpf U Hyaline Cast (Auto) 0 (0-5) /lpf U Epithel Cells (Auto) 5-10 H (0-5) /lpf Urine Bacteria (Auto) Negative (Negative) Influenza Type A (PCR) Pos for Influ A A* (Neg) Influenza Type B (PCR) Neg for Influ B (Neg) Imaging Data Attestation: I personally reviewed and interpreted this imaging study as follows : Radiologist's Impression: CT SCAN OF THE BRAIN WITHOUT IV CONTRAST CLINICAL HISTORY: Change in mental status. COMPARISON STUDY: No priors. TECHNIQUE: Unenhanced axial CT scan of the brain is performed from the vertex to the skull base. A dose lowering technique was utilized adhering to the principles of ALARA. CT DOSE: 614.27 mGy.cm FINDINGS: Brain parenchyma: There are age-related involutional changes noting mild subcortical and periventricular microangiopathic change. There is no hemorrhage , mass effect, or evidence of acute territorial ischemia by CT criteria. A 2.6 cm arachnoid cyst is noted in the anterior left temporal fossa. Engle-white matter differentiation is preserved. No extra-axial fluid collection is seen. Ventricles, sulci, cisterns: Prominent secondary to involutional change. Intracranial vasculature: There is atherosclerotic calcification of the cavernous carotid and vertebral arteries. Calvarium: Unremarkable. Sinuses and mastoids: The visualized paranasal sinuses are clear. There is a right mastoid effusion. The left mastoid air cells are well pneumatized. Orbits: The bony orbits are grossly intact. IMPRESSION: There is no hemorrhage, mass effect, or evidence of acute territorial ischemia by CT criteria. Electronically signed by: Fabio Saavedra M.D. 10/15/2018 11:46 AM XR chest 1V portable CLINICAL HISTORY: weakness mental status change COMPARISON STUDY: 11/18/2016 FINDINGS: Mild bibasilar parenchymal infiltrative change. Mid and upper lungs are clear. Moderate Baseline emphysematous change. Permanent bipolar cardiac pacemaker. IMPRESSION: Mild bibasilar parenchymal infiltrative change. Emphysematous change. The above report was generated using voice recognition software. It may contain grammatical, syntax or spelling errors. Electronically signed by: Jett Anderson M.D. 10/15/2018 10:54 AM ECG Data Attestation: I personally reviewed and interpreted this ECG as follows: Indication: SOB/dyspnea Rate (beats per minute): 67 Rhythm: other (Atrial paced) Findings: + nonspecific-ST abn; no PVC and no ST elevation Blood Pressure Blood Pressure Findings: Normal blood pressure MDM Narrative There is no leukocytosis. No concerning anemia. Renal panel testing showed some dehydration/renal insufficiency. No significant electrolyte abnormality requiring correction. There was no coagulopathy. Lactic acid level was not elevated making severe sepsis less likely. There was no hepatitis. EKG showed an atrial pacemaker, no evidence for acute ischemia. Cardiac enzyme testing x1 was not consistent with acute cardiac injury. Thyroid testing showed the patient to be in a euthyroid state. Urinalysis did not show infection. Blood cultures are pending. Influenza testing was positive for influenza A. Chest x- ray shows a right lower lung pneumonia. Brain CT shows no acute bleed or mass- effect. The patient presents with some fatigue and increasing shortness of breath. He was hypotensive at his primary care doctor's office. He has been increasingly confused as per his family. The patient received IV saline, he was given IV Zosyn as antibiotic coverage. I do think the patient deserves a hospital stay. He has pneumonia, he has the flu. He was hypoxic here in the ED--he was placed on nasal cannula O2. He has had a change in mental status and has been weak and more short of breath. I did speak to the patient and case sealer. I spoke to the patient's family. The on-call hospitalist was consulted. Impression & Plan Hypoxia, Pneumonia, Weakness, Influenza A Discharge Plan Visit Data *Final* Discharge Date/Time: 10/15/18 15:53 Chief Complaint: Weakness Stated Complaint: WEAKNESS, TIRED, SOB, CONFUSED ED Provider: Fabio Duarte Discharge Problem: Hypoxia, Pneumonia, Weakness, Influenza A Patient Disposition: Admitted As Inpatient Discharge Instructions Interventions: ED Discharge Assessment Last Done: 10/15/18 15:53 The scribe's documentation has been prepared under my direction and personally reviewed by me in its entirety. I confirm that the note above accurately reflects all work, treatment, procedures, and medical decision making performed by me.
[2018-10-15] MEDS ORDERED: ALPRAZolam 0.25 MG TABLET PO PRN (17:11)
[2018-10-15] MEDS ORDERED: PIPERACILL/TAZOBAC CONSULT ACTIVE PRN (17:57)
[2018-10-15] MEDS ORDERED: SODIUM CHLORIDE 0.9% 1000ML 1,000 ML IV SCH (18:00)
[2018-10-15] MEDS: OSELTAMIVIR PHOSPHATE SUSP 30 MG/5 ML UDP PO SCH (19:10)
[2018-10-15] MEDS: LEVALBUTEROL HCL 0.63 MG/3 ML NEB NEB SCH (19:18)
[2018-10-15] MEDS: PIPERACILLIN/TAZOBACTAM 3.375 GM in DEXTROSE 5% 100 ML IV SCH (19:24)
[2018-10-15] MEDS: AMLODIPINE BESYLATE 5 MG TAB PO SCH (19:24)
[2018-10-15] MEDS: PRAVASTATIN SOD 40 MG TAB PO SCH (19:24)
[2018-10-15] MEDS: HEPARIN SOD 5,000 UNIT/0.5 ML VIAL SQ SCH (19:25)
[2018-10-15] MEDS ORDERED: HYDROmorphone INJ 0.5 MG/0.5 ML SYR IV PRN (21:14)
--- NOTE | 2018-10-15 22:06 | XRay Report ---
XR KUB CLINICAL HISTORY: abdominal pain COMPARISON STUDY: 06/21/2016 FINDINGS: There are surgical clips within the right upper quadrant consistent with a prior cholecyste ctomy. There is a left midabdominal metallic clips/suture. There is a thoracolumbar dextroscoliosis. There is no pathologic bowel dilatation. IMPRESSION: No evidence of pathologic bowel dilatation. Electronically signed by: Donaldo Ny M.D. 10/15/2018 10:05 PM
[2018-10-15] MEDS: DOXYCYCLINE HYCLATE 100 MG in DEXTROSE 5% 100 ML IV SCH (23:20)
[2018-10-15] MEDS: ACETAMINOPHEN 325 MG TAB PO PRN (23:21)
[2018-10-16] MEDS: LEVALBUTEROL HCL 0.63 MG/3 ML NEB NEB SCH ×4 (02:09→19:15)
[2018-10-16] MEDS: PIPERACILLIN/TAZOBACTAM 3.375 GM in DEXTROSE 5% 100 ML IV SCH ×3 (04:27→21:34)
[2018-10-16] MEDS: HEPARIN SOD 5,000 UNIT/0.5 ML VIAL SQ SCH ×3 (06:58→21:32)
[2018-10-16 07:26] LABS: Hematocrit (blood only) 42.2 % (42-52); Hemoglobin 13.9 g/dL (14.0-18.0); Mean Corpuscular Hgb Conc 32.9 g/dL (32-36); Mean Corpuscular Volume 94.4 fL (80-100); Mean Platelet Volume 10.2 fL (7.4-10.4); Platelet Count 127 K/uL (130-400); RDW Coefficient of Variation 13.9 % (11.5-14.5); RDW Standard Deviation 48.1 fL (36.4-46.3); Red Blood Count 4.47 M/uL (4.7-6.1); White Blood Count 5.03 K/uL (4.8-10.8)
[2018-10-16] MEDS: METOPROLOL SUCC 25MG EXT REL TAB PO SCH (07:59)
[2018-10-16 08:01] LABS: BUN Creatinine Ratio 12.6 (10-20); Calcium 7.9 mg/dl (8.5-10.1); Creatinine Clr Calc Pharmacy 25.5 ml/min; Est GFR (African American) 41.4; Est GFR (Non-African American) 35.7; Potassium 4.2 mmol/L (3.5-5.1)
[2018-10-16] MEDS ORDERED: LUTEIN ZEAXANTHIN PO SCH (09:00)
[2018-10-16] MEDS ORDERED: PNEUMOCOCCAL ADMINISTRATION CHARGE ONE (10:15)
[2018-10-16] MEDS ORDERED: PNEUMOCOCCAL POLYSACCHARIDES 25 MCG/0.5 ML VIAL/SYR IM ONE (10:15)
[2018-10-16] MEDS: DOXYCYCLINE HYCLATE 100 MG in DEXTROSE 5% 100 ML IV SCH ×2 (11:05→23:28)
[2018-10-16] MEDS: ACETAMINOPHEN 325 MG TAB PO PRN ×2 (13:41→17:56)
--- NOTE | 2018-10-16 15:17 | Hospitalist Progress Note ---
Date of Service October 16, 2018 Assessment & Plan (1) Influenza A: Continue oseltamivir. (2) Pulmonary infiltrates: Chest x-ray demonstrated bibasilar densities. May or may not have bacterial pneumonia, perhaps secondary to influenza. Nasal MRSA swab positive. Continue Rx with doxycyline + piperacillin / tazobactam. (3) COPD (chronic obstructive pulmonary disease): Exacerbation of COPD secondary to flu +/- pneumonia. Continue levalbuterol nebs. Consider course of steroids. (4) Hypoxia: Titrate supplemental O2. (5) Altered mental status: Metabolic encephalopathy secondary to infection. Improved. (6) Hypertension: BP's stable. Continue metoprolol and amlodipine. (7) CKD (chronic kidney disease), stage III: Serum creatinine day of admission 1.83. Creatinine today = 1.67. Follow. (8) DVT prophylaxis: SQ heparin. Ambulate. (9) Discharge planning issues: Anticipated discharge to home. Family Medicine follow-up with Dr. Jimenez. Subjective Recheck for influenza, altered mental status, and other problems. Pt seen in his room around 1420. His was visiting. Feels better. Less confused. No fever since last night. Persistent congested cough. No chest pain. No nausea or vomiting. No diarrhea. Lower abdominal pain improved. Physical Exam 2 Vital Signs (Past 24 Hours): Last Vital Signs Temp 36.7 C 10/16/18 15:06 Pulse 58 L 10/16/18 15:06 Resp 22 10/16/18 15:06 BP 106/62 10/16/18 15:06 Pulse Ox 97 10/16/18 15:06 Constitutional: no acute distress Respiratory: no respiratory distress Auscultation: + rhonchi and + wheezes Cardiovascular: Rate/Rhythm: regular rate and regular rhythm Heart Sounds: no gallop, no murmur and no cardiac rub Vessels: no JVD Extremities: no calf tenderness and no edema Gastrointestinal (Abdomen): normal bowel sounds, soft, nontender, no hepatosplenomegaly Skin: no rashes, warm and dry Psychiatric: Orientation: alert; + not oriented x 3 Results & Data Laboratory Results Laboratory Results - last 24 hr 10/15/18 10/16/18 10/16/18 18:35 07:07 07:07 WBC 5.03 RBC 4.47 L Hgb 13.9 L Hct 42.2 MCV 94.4 MCH 31.1 MCHC 32.9 RDW Std Deviation 48.1 H RDW Coeff of Roxana 13.9 Plt Count 127 L MPV 10.2 Sodium 137 Potassium 4.2 Chloride 104 Carbon Dioxide 27 Anion Gap 6.0 BUN 21 H Creatinine 1.67 H Est Cr Clr Drug Dosing 25.5 Est GFR ( Amer) 41.4 Est GFR (Non-Af Amer) 35.7 BUN/Creatinine Ratio 12.6 Glucose 81 Calcium 7.9 L Nasal Screen MRSA (PCR) Positive A
[2018-10-16] MEDS: OSELTAMIVIR PHOSPHATE SUSP 30 MG/5 ML UDP PO SCH (18:01)
[2018-10-16] MEDS: PRAVASTATIN SOD 40 MG TAB PO SCH (20:36)
[2018-10-16] MEDS: AMLODIPINE BESYLATE 5 MG TAB PO SCH (20:37)
[2018-10-17] MEDS: LEVALBUTEROL HCL 0.63 MG/3 ML NEB NEB SCH ×3 (01:57→13:50)
[2018-10-17] MEDS: HEPARIN SOD 5,000 UNIT/0.5 ML VIAL SQ SCH ×2 (05:33→13:26)
[2018-10-17] MEDS: PIPERACILLIN/TAZOBACTAM 3.375 GM in DEXTROSE 5% 100 ML IV SCH ×2 (05:47→13:26)
[2018-10-17] MEDS: METOPROLOL SUCC 25MG EXT REL TAB PO SCH (07:17)
[2018-10-17 07:22] LABS: Hematocrit (blood only) 41.7 % (42-52); Hemoglobin 13.9 g/dL (14.0-18.0); Mean Corpuscular Hgb Conc 33.3 g/dL (32-36); Mean Corpuscular Volume 94.3 fL (80-100); Mean Platelet Volume 9.8 fL (7.4-10.4); Platelet Count 134 K/uL (130-400); RDW Coefficient of Variation 13.5 % (11.5-14.5); RDW Standard Deviation 46.9 fL (36.4-46.3); Red Blood Count 4.42 M/uL (4.7-6.1); White Blood Count 4.51 K/uL (4.8-10.8)
[2018-10-17 07:59] LABS: BUN Creatinine Ratio 12.1 (10-20); Calcium 8.1 mg/dl (8.5-10.1); Creatinine Clr Calc Pharmacy 31.2 ml/min; Est GFR (African American) 47.5
[2018-10-17] MEDS ORDERED: RIVASTIGMINE PATCH TD SCH ×2 (09:00)
[2018-10-17] MEDS: DOXYCYCLINE HYCLATE 100 MG in DEXTROSE 5% 100 ML IV SCH (11:10)
--- NOTE | 2018-10-17 12:50 | Hospitalist Progress Note ---
Date of Service October 17, 2018 Assessment & Plan (1) Influenza A: [employer]UC[employer] swab for influenza A positive. Fever and pulmonary symptoms improved. Continue oseltamivir to complete 5 day course of therapy. Dose adjusted for renal insufficiency. (2) Pulmonary infiltrates: Chest x-ray demonstrated bibasilar densities. May or may not have bacterial pneumonia, perhaps secondary to influenza. Nasal MRSA swab positive. Received Rx with doxycyline + piperacillin / tazobactam. Blood cultures negative. Discharge on doxycycline to complete 7 days of therapy. (3) COPD (chronic obstructive pulmonary disease): Exacerbation of COPD secondary to flu +/- pneumonia. Received levalbuterol nebs. Did not require steroids. (4) Hypoxia: Nocturnal hypoxia on home O2 at night. O2 sats as low as 88% in ED day of admission. Received supplemental O2 as needed. Oxygenation well at rest and with ambulation day of discharge. Continue home nocturnal O2. (5) Altered mental status: Metabolic encephalopathy secondary to infection. Improved. (6) Hypertension: BP's stable. Continue metoprolol and amlodipine. (7) CKD (chronic kidney disease), stage III: Serum creatinine day of admission 1.83. Creatinine today = 1.49. Follow. (8) DVT prophylaxis: Received SQ heparin. Ambulating. (9) Discharge planning issues: Discharge to home. Family Medicine follow-up with Dr. Jimenez. Subjective Recheck for influenza, altered mental status, and other problems. Pt seen in his room around 1240. His was visiting. Intermittent agitation with some confusion. Overall, doing much better. Fever resolved. Cough improved. Oxygenation improved. No nausea or vomiting. Physical Exam 2 Vital Signs (Past 24 Hours): Last Vital Signs Temp 37.1 C 10/17/18 11:22 Pulse 60 10/17/18 11:22 Resp 18 10/17/18 11:22 BP 104/58 L 10/17/18 11:22 Pulse Ox 94 10/17/18 12:44 Constitutional: no acute distress Respiratory: no respiratory distress Auscultation: + rhonchi and + wheezes Cardiovascular: Rate/Rhythm: regular rate and regular rhythm Heart Sounds: no gallop, no murmur and no cardiac rub Vessels: no JVD Extremities: no calf tenderness and no edema Gastrointestinal (Abdomen): normal bowel sounds, soft, nontender, no hepatosplenomegaly Skin: no rashes, warm and dry Psychiatric: Orientation: alert; + not oriented x 3 Results & Data Laboratory Results Laboratory Results - last 24 hr 10/17/18 10/17/18 06:59 06:59 WBC 4.51 L RBC 4.42 L Hgb 13.9 L Hct 41.7 L MCV 94.3 MCH 31.4 MCHC 33.3 RDW Std Deviation 46.9 H RDW Coeff of Roxana 13.5 Plt Count 134 MPV 9.8 Sodium 137 Potassium 4.0 Chloride 105 Carbon Dioxide 26 Anion Gap 6.0 BUN 18 Creatinine 1.49 H Est Cr Clr Drug Dosing 31.2 Est GFR ( Amer) 47.5 Est GFR (Non-Af Amer) 41.0 BUN/Creatinine Ratio 12.1 Glucose 83 Calcium 8.1 L Microbiology 10/15/18 10:49 Blood Blood Culture - Preliminary No growth to date. 10/15/18 10:36 Blood Blood Culture - Preliminary No growth to date.
--- NOTE | 2018-10-17 22:35 | Discharge Summary ---
Date of Service Date of admission: 10/15/18 Date of discharge: 10/17/18 Admission HPI Per Admitting Provider Pt is 87 y/o M with PMH HTN, dyslipidemia, tachybrady syndrome s/p pacemaker, anxiety, dementia, COPD on 2L oxygen HS, CKD III, bladder CA s/p TURBT presented to ER from PCP office for SOB. Pt with hx dementia, history obtained with assistance of daughter. Reports past 3-4 days with cough, congestion, SOB and weakness. [place] chills, did not take temperature. Denies ill contacts. Pt reports chronic cough after eating, denies rakan choking episode. Hx [place] diverticulum per prior records. Doesn't think cough worse. Pt typically active and yesterday was shoveling snow. Pt's daughter reports when pt shoveling or working outside at baseline has SOB and CP and wonders he if requires continuous oxygen. Denies any current CP. Daugter feels pt at baseline mental status. Had influenza vaccine this season. Denies diaphoresis, N/V/D/C, TOVAR, dizziness, syncope, vision changes, neck pain, orthopnea, palpitations, hemoptysis, sore throat, otalgia, abdominal pain, paresthesias, extremity edema , rashes, urinary symptoms. Admission Exam Per Admitting Provider Physical Exam: General: no acute distress, WDWN Head: normocephalic, atraumatic Eyes: PERRL, EOM's intact, conjunctiva non-injected, anicteric ENT: normal inspection external ears, nose, mucous membranes dry Neck: supple, trachea midline Lungs: no respiratory distress on 2L oxygen NC with O2 sats:93%, diminished throughout without rales, wheezing or rhonchi noted; no cough noted CV: RRR, no murmur, no pretibial edema Abd: normal BS, soft, non-tender Ext: no cyanosis, no calf tenderness Neuro: A&O to person, place, no focal deficits noted, normal affect Skin: warm, dry Principal Diagnosis influenza A possible pneumonia positive nasal MRSA screen hypoxia metabolic encephalopathy Discharge Data Allergies Allergy/AdvReac Type Severity Reaction Status Date / Time Sulfa (Sulfonamide Allergy Intermediate RASH Verified 10/15/18 13:19 Antibiotics) bee venom protein (honey bee) Allergy Unknown swollen Unverified 10/15/18 13:19 adhesive AdvReac Intermediate SKIN Verified 10/15/18 13:19 IRRITATIONS, BRUISES verapamil AdvReac Mild N/V Verified 10/15/18 13:19 Consultations 10/15/18 12:43 ED Decision to Admit Stat 10/15/18 17:11 Consult Case Management - Discharge Planning Routine Ordered Studies 10/15/18 10:19 CT head/brain wo con Stat Hospital Course (1) Influenza A: ADMINISTRATIVE LIAISON swab for influenza A positive. Fever and pulmonary symptoms improved. Continue oseltamivir to complete 5 day course of therapy. Dose adjusted for renal insufficiency. (2) Pulmonary infiltrates: Chest x-ray demonstrated bibasilar densities. May or may not have bacterial pneumonia, perhaps secondary to influenza. Nasal MRSA swab positive. Received Rx with doxycyline + piperacillin / tazobactam. Blood cultures negative. Discharged on doxycycline to complete 7 days of therapy. (3) COPD (chronic obstructive pulmonary disease): Exacerbation of COPD secondary to flu +/- pneumonia. Received levalbuterol nebs. Did not require steroids. (4) Hypoxia: Nocturnal hypoxia on home O2 at night. O2 sats as low as 88% in ED day of admission. Received supplemental O2 as needed. Oxygenation well at rest and with ambulation day of discharge. Continue home nocturnal O2. (5) Altered mental status: Metabolic encephalopathy secondary to infection. Improved. (6) Hypertension: BP's stable. Continue metoprolol and amlodipine. (7) CKD (chronic kidney disease), stage III: Serum creatinine day of admission 1.83. Creatinine day of discharge was 1.49. Follow. (8) DVT prophylaxis: Received SQ heparin. Ambulating. (9) Discharge planning issues: Discharged to home. Family Medicine follow-up with Dr. Jimenez. (10) MRSA (methicillin resistant Staphylococcus aureus) carrier: Total Time Total Time Spent Total Time Spent (In Minutes): 40 Discharge Plan Discharge Items Patient Disposition: Home - Self-Care Reason For Visit: trouble breathing Discharge Diagnosis: flu possible pneumonia Condition: Good Discharge Goals: Decrease discomfort and Improve disease control Activity: Per 'Additional Instructions' section Exercise/Sports: Gradually increase as tolerated Non-emergency contact: Primary Care Provider and Hospitalist Call non-emergency contact if: you have any medication questions, your symptoms worsen and your temperature is above 101 Follow-up/Referrals: Neena Jimenez MD [Primary Care Provider] - (Office will call you with appointment.) Diet: Heart Healthy Addtl Provider Instructions: OTHER INSTRUCTIONS: Seek medical attention if you have: * temperature above 101 * chest pain or trouble breathing * abdominal pain, nausea, vomiting * diarrhea, dark stools or bloody stools * any unanswered questions or concerns Call 911 if symptoms are severe. Call if you have any questions or problems. My cell # is [phone]. You can also reach a [facility] hospitalist on duty at [facility] 24 hours a day by calling [phone]. Prescriptions: New oseltamivir [Tamiflu] 30 mg capsule 30 mg PO BID Qty: 5 RF: 0 doxycycline hyclate 100 mg tablet 100 mg PO BID Qty: 12 RF: 0 Continue metoprolol succinate 25 mg tablet extended release 24 hr 2 tab PO DAILY RF: 0 albuterol sulfate [Ventolin HFA] 90 mcg/actuation Hfa Aerosol Inhaler 2 puff INHALATION Q6H PRN (Reason: Shortness Of Breath Or Wheezing) RF: 0 pravastatin 40 mg tablet 40 mg PO HS RF: 0 amlodipine 2.5 mg tablet 2.5 mg PO HS RF: 0 alprazolam 0.25 mg tablet 0.25 mg PO TID PRN (Reason: Anxiety) RF: 0 lisinopril 5 mg tablet 5 mg PO DAILY RF: 0 rivastigmine 4.6 mg/24 hr patch 24 hour 4.5 mg topical QAM RF: 0 lutein-zeaxanthin 20 mg- 1,000 mcg Capsule 1 cap PO DAILY RF: 0 Stand-Alone Forms: My [facility] Discharge Orders: Discharge Order (Routine); Ordered 10/17/18 Ordered By: Fadi Song Admission Data Admit Date/Time: 10/15/18 14:14 Attending Provider: Fadi Song Admit Provider: Fadi Song Primary Care Provider: Neena Jimenez Other Providers: Fadi Song Service: Telemetry Other Interventions: Discharge Summary Assessment (RN) Last Done: 10/17/18 15:11 DC Date/Time DO NOT enter until pt leaves facility: 10/17/18 15:26
== END 2018-10-17 15:26 | disposition home or self-care (01) | DRG 193 ==
LOC: ED 09:58 → 2W 14:14